=== PATIENT | female | born 1970 | race Caucasian/White ===

== ENCOUNTER → 2019-08-17 15:46 | Outpatient (CLI) | payer OTHER, SELFPAY | PROVIDERS: PCP Naturopath; Visit Provider Internal Medicine | DX: S81.002D Unspecified open wound, left knee, subsequent encounter (principal) | CPT/HCPCS: 87070; 87075; 87077; 87186; 87205 ==

== ENCOUNTER 2019-10-15 05:06 | Emergency (ER) | payer OTHER, SELFPAY ==
[2019-10-15 05:16] VITALS: BP 124/59; PULSE 86; RESP 14; TEMP 37; O2SAT 100; BMI 22.4
--- NOTE | 2019-10-15 05:25 | ED.NEUROSD ---
HPI - Neuro Symptoms/Deficit General Chief Complaint: Neuro Symptoms/Deficit Stated Complaint: lft, lower part of face numb Time Seen by Provider: 10/15/19 05:07 Source: patient Mode of arrival: Family Vehicle Limitations: no limitations History of Present Illness HPI Narrative: 49-year-old female here for evaluation of approximately 30 minutes of ?tingling/numbness on her left jaw. She states that it started/she noticed it approximately 30 minutes ago. She was awake at the time. No trauma. No dental pain. No eye symptoms. No numbness or tingling in her upper lower extremities. No weakness in her upper lower extremities. No slurring of words. No rashes. No ear pain. No dental pain. She states that her left side of her jaw feels like ?it is coming out of anesthesia. On Anticoagulants: No Related Data Home Medications Medication Instructions Recorded Confirmed QUETIAPINE FUMARATE (Seroquel) 25 mg PO HS #0 08/04/08 [LITHIUM ORATATE] #0 08/04/08 [LTRYPTIPHAN] #0 08/04/08 Previous Rx's Medication Instructions Recorded mupirocin 2 % topical ointment 1 applic TOP TID #30 gram 07/27/19 Allergies Allergy/AdvReac Type Severity Reaction Status Date / Time Penicillins Allergy Unknown Verified 07/27/19 12:38 Review of Systems Constitutional Constitutional: Denies chills, Denies fatigue, Denies fever(s) and Denies headache(s) Eyes Eyes: Denies blurry vision, Denies change in vision, Denies diplopia, Denies irritation, Denies itchy eyes, Denies loss of vision and Denies eye pain ENT Ears, Nose, Mouth, and Throat: Denies change in voice, Denies dental pain, Denies dysphagia, Denies vertigo, Denies dizziness, Denies facial pain, Denies headache(s), Denies lip swelling, Denies neck pain and Denies disequilibrium Comments: Tingling left-sided general Cardiovascular Cardiovascular: Denies chest pain and Denies dyspnea Respiratory Respiratory: Denies cough and Denies dyspnea Gastrointestinal Gastrointestinal: Denies dysphagia, Denies nausea and Denies vomiting Musculoskeletal Musculoskeletal: Denies neck pain and Reports tingling Integumentary/Breasts Skin/Breast: Denies lesions and Denies rash Neurologic Neurologic: Denies abnormal movements, Denies abnormal speech, Denies behavioral changes, Denies burning sensations, Denies confusion, Denies vertigo, Denies dizziness, Denies headache(s), Denies loss of vision, Reports tingling and Denies disequilibrium Psychiatric Psychiatric: Denies behavioral changes and Denies confusion Endocrine Endocrine: Denies fatigue Hematologic/Lymphatic Hematologic/Lymphatic: Denies easy bleeding and Denies easy bruising Allergic/Immunologic Allergic/Immunologic: Denies urticaria, Denies itchy eyes and Denies lip swelling Patient History Medical History Encounter for removal of sutures (Acute) Social History Smoking Status: Never smoker Smoking Status: Never smoker Substance Use Type: does not use Exam Initial Vital Signs Initial Vital Signs: Vital Signs Temperature 98.6 F 10/15/19 05:16 Pulse Rate 104 H 10/15/19 05:16 Respiratory Rate 14 10/15/19 05:16 Blood Pressure 124/59 L 10/15/19 05:16 Pulse Oximetry 100 10/15/19 05:16 Const General: cooperative, comfortable, well developed, well groomed and No acute distress Limitations: mental status not altered HENMT Head: normal to inspection and normocephalic Ears: TM's normal bilaterally Nose: external nose normal Face and sinus: normal facial exam Mouth: oral mucosae normal Teeth and gingiva: dentition normal Throat: posterior oropharynx normal Eyes General: appearance normal, both eyes and all related structures Conjunctivae: conjunctivae normal Pupils: PERRL EOM: EOM intact bilaterally Resp Effort & Inspection: normal respiratory effort Auscultation: clear to auscultation bilaterally Cardio Rate: regular rate Rhythm: regular rhythm Skin Lesions: no lesions Rashes: no rashes Neuro General: alert, awake and oriented x3 Cranial Nerves: PERRL and facial strength normal Cognition: normal cognition Speech: speech normal Gait: normal gait Motor: muscle tone normal throughout Sensory Exam: no sensory deficits noted Other: Cranial nerves intact except for the subjective decrease in sensation along the mandibular branch of the left-sided trigeminal nerve. She has no tenderness to palpation over this area. She can feel in this area she just states that is decreased sensation compared to the right side. Extrem General: normal to inspection and capillary refill normal Psych Appearance: grossly normal and well kempt Scores GCS [place] coma scale eye opening: Spontaneous [place] coma scale verbal response: Orientated Jan[place] coma scale motor response: Obey commands Janeth coma scale total score: 15 NIH Stroke Scale Level of Conciousness: Alert, keenly responsive Ask month/age: Answers both questions correctly. Open/close eyes, close hand: Performs both tasks correctly Best gaze horizontal: Normal Visual [place]: No visual loss Facial palsy: Normal symetrical movement Left arm drift: No drift for full 10 sec Right arm drift: No drift for full 10 sec Left leg drift: No drift for full 10 sec Right leg drift: No drift for full 10 sec Limb ataxia: Absent Sensory on face/arms/legs: Mild to moderate sensory loss, can tell touch Best language: No aphasia, normal Dysarthria: Normal Extinction or inattention: No abnormality Total NIH Stroke scale score: 1 Course Vital Signs Vital signs: Vital Signs - 8 hr 10/15/19 05:16 Temperature 98.6 F Pulse Rate 104 H Respiratory Rate 14 Blood Pressure 124/59 L Pulse Oximetry 100 MDM - Neuro Symptoms/Deficit MDM Narrative Medical decision making narrative: Patient with no objective findings on her neurologic exam. NIH score of 1 secondary to the decreased sensation to light touch along 1 branch of the left-sided trigeminal nerve compared to the right. Motor the facial nerves unremarkable. There is no rash consistent with zoster. Her exam is not consistent with Ji's palsy. Low suspicion for TIA. Low suspicion for CVA. Feel we could hold on antibiotics or steroids for now. Informed the patient of strict return precautions with regard to zoster/Ji's palsy in the importance of starting medications early if her symptoms worsen. She is given with return precautions and follow-up instructions. She expressed understanding and agreement with plan. Discharge Plan Departure Patient Disposition: Home Clinical Impression: Facial paresthesia Instructions: DI for Numbness/tingling Activity Restrictions/Additional Instructions: Recommend that you contact your primary provider for follow-up. If you start to develop a rash on left side her face or the tingling/numbness worsens or he develops any other new symptoms please return to the emergency department for further evaluation Prescriptions: No Action mupirocin 2 % ointment 1 applic TOP TID Qty: 30 RF: 0 QUETIAPINE FUMARATE (Seroquel) 25 mg PO HS Qty: 0 RF: 0 [LTRYPTIPHAN] Qty: 0 RF: 0 [LITHIUM ORATATE] Qty: 0 RF: 0 Referrals: Mary Rodriguez ND [Primary Care Provider] -
[2019-10-15 05:30] VITALS: BP 108/51; PULSE 86; RESP 14; O2SAT 100
== END 2019-10-15 05:33 | disposition home or self-care (01) ==
PROVIDERS: Emergency Provider Emergency Medicine; PCP Naturopath
DX: R20.2 Paresthesia of skin (principal)
CPT/HCPCS: 99282

== ENCOUNTER 2019-12-13 17:32 | Observation (INO) | payer OTHER, SELFPAY ==
[2019-12-13] VITALS (11 sets, daily range): BP systolic 93–152; BP diastolic 50–73; PULSE 79–91; RESP 12–21; TEMP 36.6–36.8; O2SAT 97–100; BMI 22.0
--- NOTE | 2019-12-13 18:13 | ED.CHESTPAIN ---
HPI - Chest Pain General Chief Complaint: Chest Pain Stated Complaint: Left Arm Numbness and Tingling/Chest Pressure Time Seen by Provider: 12/13/19 17:58 Source: patient Mode of arrival: Ambulatory Limitations: no limitations History of Present Illness HPI narrative: 49-year-old female nonsmoker with very strong family history of coronary artery disease presents with a chief complaint of episodes of anterior chest pressure with radiation to her left shoulder over the course of the week. She has had some nausea but denies any vomiting. She has had no significant shortness of breath but has been fatigued. She states that today she became very winded when walking upstairs, which is not normal for her. She does not think that be exertion worsens her chest pressure. She denies any recent long distance travel, history of clot or other. She states that she has been feeling generally unwell for quite a long time and was laid up at home with symptoms consistent with [place] id, however her tests were negative. Patient was having pressure 3/10 on arrival MD complaint: chest pain Onset (ago): hour(s) Duration: intermittent Onset: during rest Pain location: substernal and left chest Severity: moderate Quality: tightness and heaviness Pain radiation: LUE Relieving factors: nothing Exacerbating factors: nothing Associated symptoms: nausea Treatments prior to arrival chest pain: none Related Data On Oral Contraceptives: No Previous Rx's Medication Instructions Recorded mupirocin 2 % topical ointment 1 applic TOP TID #30 gram 07/27/19 Allergies Allergy/AdvReac Type Severity Reaction Status Date / Time Penicillins Allergy Unknown Verified 12/13/19 17:46 Review of Systems Constitutional Constitutional: Denies chills, Reports fatigue, Denies fever(s), Denies frequent falls, Reports lethargy and Denies weakness Eyes Eyes: Denies change in vision, Denies eye discharge, Denies irritation and Denies loss of vision ENT Ears, Nose, Mouth, and Throat: Denies change in voice, Denies dizziness, Denies neck pain, Denies sore throat and Denies throat swelling Cardiovascular Cardiovascular: Reports chest pain, Denies irregular heart rhythm, Denies lightheadedness, Denies palpitations, Reports dyspnea, Reports dyspnea on exertion and Denies orthopnea Respiratory Respiratory: Denies cough, Reports dyspnea, Reports dyspnea on exertion and Denies wheezing Gastrointestinal Gastrointestinal: Denies abdominal pain, Denies change in bowel habits, Denies diarrhea, Denies nausea and Denies vomiting Musculoskeletal Musculoskeletal: Denies neck pain and Denies numbness Integumentary/Breasts Skin/Breast: Denies pruritus, Denies erythema, Denies rash and Denies wounds Neurologic Neurologic: Denies behavioral changes, Denies confusion, Denies dizziness, Denies frequent falls, Denies loss of vision, Denies numbness and Denies weakness Psychiatric Psychiatric: Denies anxiety, Denies behavioral changes, Denies confusion, Denies depression, Denies homicidal ideation and Denies suicidal ideation Endocrine Endocrine: Reports fatigue, Denies flushing and Denies palpitations Hematologic/Lymphatic Hematologic/Lymphatic: Denies easy bruising Allergic/Immunologic Allergic/Immunologic: Denies urticaria, Denies throat swelling and Denies wheezing Patient History Medical History Encounter for removal of sutures (Acute) Social History household members: spouse Smoking Status: Never smoker Smoking Status: Never smoker Substance Use Type: does not use Exam Narrative Exam Narrative: GENERAL: [49] year old patient appears stated age. Well-nourished, well-developed patient, in mild distress. HEAD: Atraumatic. Normocephalic. EYES: Pupils equal round and reactive. Extraocular motions intact. No scleral icterus. No injection or drainage. ENT: Nose without bleeding, purulent drainage. Throat without erythema, tonsillar hypertrophy or exudate. Airway patent. NECK: Trachea midline. Non tender CARDIOVASCULAR: Regular rate and rhythm without murmurs, gallops, or rubs. RESPIRATORY: Clear to auscultation. Breath sounds equal bilaterally. No wheezes, rales, or rhonchi. GASTROINTESTINAL: Abdomen soft, non-tender, nondistended. EXTREMITIES: No edema or joint tenderness. BACK: Nontender without deformity or crepitance. No flank tenderness. NEURO: AOx3. SKIN: No rash or erythema of visible areas Initial Vital Signs Initial Vital Signs: Vital Signs Pulse Rate 91 H 12/13/19 17:43 Respiratory Rate 12 12/13/19 17:43 Blood Pressure 118/57 L 12/13/19 17:43 Pulse Oximetry 100 12/13/19 17:43 Course Course Course Narrative: Patient had a near complete resolution symptoms after 1 nitro. Orders Ordered: ED Orders 12/13/19 20:00 Troponin I Stat 12/13/19 21:14 Consult to Discharge Planning Routine 12/14/19 05:00 Basic Metabolic Panel Routine Complete Blood Count AUTO DIFF Routine Lipid Panel Routine Magnesium Routine Acetaminophen (Tylenol) 650 mg PO Q6HR PRN PRN Reason: Fever/Mild Pain (1-3) Aspirin (Aspirin Chew) 81 mg PO DAILY YASMINE Bisacodyl (Dulcolax) 10 mg PO DAILY PRN PRN Reason: Constipation Enoxaparin Sodium (Lovenox) 40 mg SUBCUT DAILY YASMINE Sodium Chloride (Normal Saline 0.9%) 1,000 mls @ 150 mls/hr IV CONT YASMINE Last Infusion: 12/13/19 21:03 Dose: 0 mls/hr Documented by: Admin: 12/13/19 18:43 Dose: 150 mls/hr Documented by: KAREN Sodium Chloride (Normal Saline 0.9%) 1,000 mls @ 100 mls/hr IV CONT [facility] Last Admin: 12/13/19 23:57 Dose: 100 mls/hr Documented by: CINTHIA Morphine Sulfate (Morphine) 2 mg IV Q5MIN PRN PRN Reason: Chest Pain Naloxone HCl (Narcan) 0.2 mg IV Q2MIN PRN PRN Reason: Opiate Reversal Nitroglycerin (Nitrostat) 0.4 mg SL [id number] PRN PRN Reason: Chest Pain Ondansetron HCl (Zofran) 4 mg IV Q8HR PRN PRN Reason: Nausea And Vomiting Discontinued Medications Aspirin (Aspirin Chew) 324 mg PO NOW ONE Stop: 12/13/19 18:15 Last Admin: 12/13/19 18:46 Dose: 324 mg Documented by: KAREN Nitroglycerin (Nitrostat) 0.4 mg SL NOW ONE Stop: 12/13/19 18:46 Last Admin: 12/13/19 18:47 Dose: 0.4 mg Documented by: KAREN Vital Signs Vital signs: Vital Signs - 8 hr 12/13/19 17:43 12/13/19 17:47 12/13/19 18:47 Temperature 97.8 F Pulse Rate 91 H 81 Respiratory Rate 12 Blood Pressure 118/57 L 152/67 H Blood Pressure [Left Arm] Pulse Oximetry 100 06/08/20 19:04 12/13/19 19:30 12/13/19 20:00 Temperature Pulse Rate 91 H 88 82 Respiratory Rate 16 21 20 Blood Pressure Blood Pressure [Left Arm] 116/63 99/53 L 93/50 L Pulse Oximetry 99 98 98 12/13/19 20:15 Temperature Pulse Rate 82 Respiratory Rate 16 Blood Pressure Blood Pressure [Left Arm] 105/60 Pulse Oximetry 97 MDM - Chest Pain Lab Data Result diagrams: 12/13/19 18:00 12/13/19 18:00 Labs: Lab Results 12/13/19 12/13/19 12/13/19 Range/Units 18:00 18:00 18:00 WBC 6.4 (4.5-11.0) X10^3/uL RBC 4.03 (4.0-5.2) X10^6/uL Hgb 12.6 (12.0-16.0) g/dL Hct 36.8 (36-46) % MCV 91.4 (80-100) fL MCH 31.3 (26-34) PG MCHC 34.2 (30-36) % RDW 12.8 (11.6-14.8) % Plt Count 233 (150-400) X10^3/uL Neut % (Auto) 48.6 L (50-75) % Lymph % (Auto) 40.4 H (25-40) % [place] % (Auto) 7.4 (3-14) % Eos % (Auto) 3.1 (2-4) % Baso % (Auto) 0.5 (0-2) % Neut # (Auto) 3100 (0192-4542) /uL Lymph # (Auto) 2600 (9104-3073) /uL [place] # (Auto) 500 (0-900) /uL Eos # (Auto) 200 (0-450) /uL Baso # (Auto) 0 (0-100) /uL PT 10.6 (10.1-12.7) SECONDS INR 0.9 (0.9-1.3) D-Dimer < 200 (<230) ng/mL Sodium 135 L (137-145) mmol/L Potassium 4.0 (3.4-5.1) mmol/L Chloride 103 (98-107) mmol/L Carbon Dioxide 27 (22-32) mmol/L BUN 18 H (7-17) mg/dL Creatinine 0.49 L (0.52-1.04) mg/dL Estimated GFR > 60.0 (>60) mL/min BUN/Creatinine Ratio 36.7 H (6-22) Glucose 96 (70-100) mg/dL Calcium 9.6 (8.4-10.2) mg/dL Magnesium (1.6-2.3) mg/dL Ferritin (6-137) ng/mL Total Bilirubin 0.5 (0.2-1.3) mg/dL AST 53 H (14-36) IU/L ALT 40 H (<35) IU/L Alkaline Phosphatase 67 (38-126) U/L Lactate Dehydrogenase (313-618) U/L Total Creatine Kinase 42 (30-135) U/L CK-MB (CK-2) TNP CK-MB (CK-2) Rel Index TNP Troponin I < 0.012 (0.01-0.034) ng/mL C-Reactive Protein (<1.0) mg/dL NT-Pro-B Natriuret Pep 25 (<125) pg/mL Total Protein 7.5 (6.3-8.2) g/dL Albumin 4.3 (3.5-5.0) g/dL Globulin 3.2 (1.7-4.1) g/dL Albumin/Globulin Ratio 1.3 (1.0-2.8) Lipase 112 (23-300) U/L COVID-19 PCR (Negative) 12/13/19 12/13/19 12/13/19 Range/Units 18:00 18:00 20:00 WBC (4.5-11.0) X10^3/uL RBC (4.0-5.2) X10^6/uL Hgb (12.0-16.0) g/dL Hct (36-46) % MCV (80-100) fL MCH (26-34) PG MCHC (30-36) % RDW (11.6-14.8) % Plt Count (150-400) X10^3/uL Neut % (Auto) (50-75) % Lymph % (Auto) (25-40) % [place] % (Auto) (3-14) % Eos % (Auto) (2-4) % Baso % (Auto) (0-2) % Neut # (Auto) (1959-3011) /uL Lymph # (Auto) (1180-5983) /uL [place] # (Auto) (0-900) /uL Eos # (Auto) (0-450) /uL Baso # (Auto) (0-100) /uL PT (10.1-12.7) SECONDS INR (0.9-1.3) D-Dimer (<230) ng/mL Sodium (137-145) mmol/L Potassium (3.4-5.1) mmol/L Chloride (98-107) mmol/L Carbon Dioxide (22-32) mmol/L BUN (7-17) mg/dL Creatinine (0.52-1.04) mg/dL Estimated GFR (>60) mL/min BUN/Creatinine Ratio (6-22) Glucose (70-100) mg/dL Calcium (8.4-10.2) mg/dL Magnesium 2.2 (1.6-2.3) mg/dL Ferritin 13 (6-137) ng/mL Total Bilirubin (0.2-1.3) mg/dL AST (14-36) IU/L ALT (<35) IU/L Alkaline Phosphatase (38-126) U/L Lactate Dehydrogenase 480 (313-618) U/L Total Creatine Kinase (30-135) U/L CK-MB (CK-2) CK-MB (CK-2) Rel Index Troponin I < 0.012 (0.01-0.034) ng/mL C-Reactive Protein < 0.5 (<1.0) mg/dL NT-Pro-B Natriuret Pep (<125) pg/mL Total Protein (6.3-8.2) g/dL Albumin (3.5-5.0) g/dL Globulin (1.7-4.1) g/dL Albumin/Globulin Ratio (1.0-2.8) Lipase (23-300) U/L COVID-19 PCR (Negative) 12/13/19 Range/Units 20:57 WBC (4.5-11.0) X10^3/uL RBC (4.0-5.2) X10^6/uL Hgb (12.0-16.0) g/dL Hct (36-46) % MCV (80-100) fL MCH (26-34) PG MCHC (30-36) % RDW (11.6-14.8) % Plt Count (150-400) X10^3/uL Neut % (Auto) (50-75) % Lymph % (Auto) (25-40) % [place] % (Auto) (3-14) % Eos % (Auto) (2-4) % Baso % (Auto) (0-2) % Neut # (Auto) (9864-2609) /uL Lymph # (Auto) (5012-7732) /uL [place] # (Auto) (0-900) /uL Eos # (Auto) (0-450) /uL Baso # (Auto) (0-100) /uL PT (10.1-12.7) SECONDS INR (0.9-1.3) D-Dimer (<230) ng/mL Sodium (137-145) mmol/L Potassium (3.4-5.1) mmol/L Chloride (98-107) mmol/L Carbon Dioxide (22-32) mmol/L BUN (7-17) mg/dL Creatinine (0.52-1.04) mg/dL Estimated GFR (>60) mL/min BUN/Creatinine Ratio (6-22) Glucose (70-100) mg/dL Calcium (8.4-10.2) mg/dL Magnesium (1.6-2.3) mg/dL Ferritin (6-137) ng/mL Total Bilirubin (0.2-1.3) mg/dL AST (14-36) IU/L ALT (<35) IU/L Alkaline Phosphatase (38-126) U/L Lactate Dehydrogenase (313-618) U/L Total Creatine Kinase (30-135) U/L CK-MB (CK-2) CK-MB (CK-2) Rel Index Troponin I (0.01-0.034) ng/mL C-Reactive Protein (<1.0) mg/dL NT-Pro-B Natriuret Pep (<125) pg/mL Total Protein (6.3-8.2) g/dL Albumin (3.5-5.0) g/dL Globulin (1.7-4.1) g/dL Albumin/Globulin Ratio (1.0-2.8) Lipase (23-300) U/L COVID-19 PCR Negative (Negative) Imaging Data Chest x-ray: Radiologist's Impression: Chart Viewer Diagnostics DATE TYPE STATUS REF RANGE/AUTHOR Hx 12/13/19 18:14 Glenroy Lerma Miriam 49, F107/25/1969 REG ER, [facility] ED R05 152.4cm 51.256kg BMI: 22.1kg/m? Chest Pain Search Chart No Data to Display NF - Not included in interaction checking ONSET Today 20:15 Cary Copeland 49 F [address] [address] XRay Report Signed Patient: Aundrea CopelandmMR#: [id number] : 1970Acct:[id number] Age/Sex: 49 / FDate of Service: 12/13/19 Loc: ED Accession Number: [id number] Procedure: XR chest 1V Ordering Provider: Nico Hood D.O. PROCEDURE: XR CHEST 1V INDICATIONS: CP, SOB, fatigue TECHNIQUE: One view of the chest was acquired. COMPARISON: [facility], , CHEST 2 VIEW, 08/04/2008, 8:17. FINDINGS: Surgical changes and devices: None. Lungs and pleura: Lungs are clear. No pleural effusions or pneumothorax. Mediastinum: Mediastinal contours appear normal. Heart size is normal. Bones and chest wall: No suspicious bony lesions. Overlying soft tissues appear unremarkable. IMPRESSION: No acute disease Dictated by: Glenroy Lerma M.D. on 12/13/2019 at 18:43 Approved by: Glenroy Lerma M.D. on 12/13/2019 at 18:43 Discharge Plan Departure Patient Disposition: Admitted As Inpatient Clinical Impression: Chest pain Qualifiers: Chest pain type: unspecified Qualified Code(s): R07.9 - Chest pain, unspecified Discharge Date/Time: 12/13/19 21:05 Admit Date/Time: 12/13/19 21:14 Admit Provider: Gigi Vargas
[2019-12-13 18:27] LABS: Add Manual Diff / Slide Review NO; Basophils Absolute Auto 0 /uL (0-100); Basophils Percent Auto 0.5 % (0-2); Eosinophils Absolute Auto 200 /uL (0-450); Eosinophils Percent Auto 3.1 % (2-4); Hematocrit 36.8 % (36-46); Hemoglobin 12.6 g/dL (12.0-16.0); Lymphocytes Absolute Auto 2600 /uL (1100-4500); Lymphocytes Percent Auto 40.4 % (25-40); Mean Corpuscular HGB Conc 34.2 % (30-36); Mean Corpuscular Hemoglobin 31.3 PG (26-34); Mean Corpuscular Volume 91.4 fL (80-100); Monocytes Absolute Auto 500 /uL (0-900); Monocytes Percent Auto 7.4 % (3-14); Neutrophils Absolute Auto 3100 /uL (1500-7000); Neutrophils Percent Auto 48.6 % (50-75); Platelet Count 233 X10^3/uL (150-400); Red Blood Cell Count 4.03 X10^6/uL (4.0-5.2); Red Cell Distribution Width 12.8 % (11.6-14.8); White Blood Cell Count 6.4 X10^3/uL (4.5-11.0)
[2019-12-13 18:32] LABS: INR 0.9 (0.9-1.3); Prothrombin Time 10.6 SECONDS (10.1-12.7)
[2019-12-13 18:33] LABS: Alanine Aminotransferase 40 IU/L (<35); Albumin 4.3 g/dL (3.5-5.0); Albumin Globulin Ratio 1.3 (1.0-2.8); Alkaline Phosphatase 67 U/L (38-126); Aspartate Aminotransferase 53 IU/L (14-36); BUN Creatinine Ratio 36.7 (6-22); Bilirubin Total 0.5 mg/dL (0.2-1.3); Blood Urea Nitrogen 18 mg/dL (7-17); Calcium 9.6 mg/dL (8.4-10.2); Carbon Dioxide 27 mmol/L (22-32); Chloride 103 mmol/L (98-107); Creatine Kinase 42 U/L (30-135); Estimated Glomerular Filt Rate > 60.0 mL/min (>60); Globulin 3.2 g/dL (1.7-4.1); Glucose 96 mg/dL (70-100); HEMOLYSIS 41 (0-50); Lipase 112 U/L (23-300); Sodium 135 mmol/L (137-145); Total Protein 7.5 g/dL (6.3-8.2)
[2019-12-13 18:36] LABS: D Dimer < 200 ng/mL (<230)
[2019-12-13] MEDS: SODIUM CHLORIDE 0.9% 1,000 ML 150 ML IV (18:43)
[2019-12-13 18:45] LABS: NT-proBNP (BNP-Adult 18+) 25 pg/mL (<125); Troponin I < 0.012 ng/mL (0.01-0.034)
[2019-12-13] MEDS: ASPIRIN 81 MG CHEW TAB 324 MG PO (18:46)
[2019-12-13] MEDS: NITROGLYCERIN 0.4 MG SL TAB SL (18:47)
[2019-12-13 19:04] LABS: Lactate Dehydrogenase 480 U/L (313-618)
--- NOTE | 2019-12-13 19:05 | PC.NURSE ---
After nitro patient reports pressure in chest decreased from a 5 to a 2/10. States she feels so much better.
[2019-12-13 19:13] LABS: C-Reactive Protein Quant < 0.5 mg/dL (<1.0)
[2019-12-13 19:37] LABS: Ferritin 13 ng/mL (6-137)
[2019-12-13 20:36] LABS: Troponin I < 0.012 ng/mL (0.01-0.034)
[2019-12-13 21:33] LABS: Magnesium 2.2 mg/dL (1.6-2.3)
[2019-12-13 22:01] LABS: COVID19 -Nasal RAPID Negative (Negative)
--- NOTE | 2019-12-13 22:36 | PC.NURSE ---
Pt arrived from ER @ 2210. Alert/oriented. States she has had chest pressure for 2 days. Declines discomfort at this time . IVF infusing as per orders into the LAC w/o incidence. Pt oriented to room & all system. WIll have stress test tpmorrow, NPO @ [place] Call light w/in reach, pt calls appropriately for needs. Continue w/plan of care.
[2019-12-13] MEDS: SODIUM CHLORIDE 0.9% 1,000 ML 100 ML IV (23:57)
[2019-12-14 04:56] VITALS: BP 100/63; PULSE 64; RESP 18; TEMP 36.4; O2SAT 100
--- NOTE | 2019-12-14 05:50 | PC.NURSE ---
Pt denied chest/arm pain/pressure overnight. She did however report her right arm and left leg becoming numb at one point overnight and stated it happened the other day at home as well. Pulses present and no pain there. She said it didn't last long but she woke up to it. Kept NPO for stress test Tele: NSR NS@100mL/hr
--- NOTE | 2019-12-14 06:07 | P.HP_ITS ---
History of Present Illness History of Present Illness Date Patient Seen: 12/13/19 Time Patient Seen: 21:30 Chief complaint: Left Arm Numbness and Tingling/Chest Pressure Narrative: Ms. Cary Copeland is a 49-year-old female patient with no significant medical history who presents to the ER with chest and arm pain. The patient reports having intermittent chest pressure off and on for 1 week. She presents to the ER today related to increasing chest pressure described as retrosternal with associated shortness of breath when ascending stairs and developing radiation to the left she describes as a dull ache from her shoulder distal. She reports no nausea vomiting and has had no diaphoresis. The patient describes some difficulty swallowing and sleeping sitting up in a recliner. The patient has not had any previous similar episodes and takes only vitamins and herbal supplements following a naturopathic process. She does has a family history that is significant for cardiovascular disease and hypertension. The patient reports having no fevers or chills and denies any known COVID-19 exposure. She denies headaches or dizziness and has no visual changes. She does have a persistent numb spot on the left side of her chin which is been persistent for many weeks. She also describes having an illness that lasted 10 weeks beginning back in August with headaches dizziness or runny nose and vertigo. She has chest pain as above but denies palpitations. She typically has no shortness of breath or exertional dyspnea and has had no cough or wheezing. She denies abdominal pain or heartburn and has had no nausea vomiting, diarrhea or constipation. She describes no difficulty urinating. She states her last menstrual period was approximately 6 weeks ago and has been irregular. Upon arrival to the ER the patient has a temperature of 97.8?, heart rate of 81, blood pressure 152/67, respirations of 18 with an oxygen saturation 99% on room air. At the time of arrival the patient still was having chest pain rated at 3/10 received 1 sublingual nitro which alleviated all pain. On 12 lead EKG the patient is found to be in a normal sinus rhythm a ventricular rate of 94, no ectopy or block, normal axis, flat T-waves in V3 and V4, no other signs of ischemia or infarct. A chest x-ray obtained which finds no acute disease. On laboratory analysis the patient has white count of 6.4, hemoglobin of 12.6, hematocrit of 36.8, platelets of 230. She has a PT of 10.6 and an INR of 0.9. Her D-dimer is less than 200. Her electrolytes are all within normal limits and has a BUN of 18 and creatinine 0.48. Her nonfasting glucose is 96. On LFT she has a total bilirubin of 0.8 with the AST of 53, ALT of 40 and alkaline phosphatase of 67. She has a ferritin of 13, LDH of 480. Her total CK is 42 and her troponin is less than 0.012 x 2. COVID-19 Ng is completed and negative. The patient is admitted to the hospital for chest pain rule out ACS. Patient History Medical History (Updated 12/14/19 @ 06:22 by KADEN Aguilar) History of appendicitis (Acute) Surgical History (Updated 12/14/19 @ 06:22 by KADEN Aguilar) History of appendectomy (Acute) Family & Social History Family History (Updated 12/14/19 @ 06:23 by KADEN Aguilar) Father Hypertension Cardiovascular disease Peripheral vascular disease Mother Hypertension Cardiovascular disease Grandmother Heart attack Grandfather Stroke Social History: household members spouse Prior Living Arrangements House Safety & Behavioral: Feels Safe in Current Yes Environment Been Physically Hurt or No Threatened By a Person Suicidal Ideation Description None Suicide Plan Description No Plan Tobacco & Substance use: Smoking Status Never smoker alcohol intake frequency other Substance Use Type does not use Meds Home Medications and Allergies Home Medications Medication Instructions Recorded Confirmed Type mupirocin 2 % topical ointment 1 applic TOP TID #30 gram 07/27/19 12/14/19 Rx Allergies Allergy/AdvReac Type Severity Reaction Status Date / Time Penicillins Allergy Unknown Verified 12/13/19 17:46 Review of Systems Review of Systems ROS: Yes All systems reviewed with the patient and are negative except as otherwise documented Exam Vital Signs (past 8 hours): - 12/13/19 22:17 12/13/19 23:45 12/14/19 04:56 Temperature 98.2 F 97.6 F Pulse Rate 79 64 Respiratory Rate 18 18 Blood Pressure 107/51 L 100/63 Pulse Oximetry 99 99 100 Oxygen Delivery Method Room Air Oxygen Flow Rate 0 Narrative Exam Narrative: GENERAL APPEARANCE: well developed, well nourished, in no acute distress. HEENT: Normocephalic, PERRLA, conjunctiva clear, EOMs intact without nystagmus, no sinus tenderness to percussion, no rhinorrhea, mucous membranes are moist and pink without lesions or exudate. NECK/THYROID: neck supple, no JVD, no carotid bruit, no thyromegaly, trachea midline. LYMPH NODES: no cervical or supraclavicular lymphadenopathy. SKIN: [place], warm and dry, no visible lesions. HEART: regular rate and rhythm, S1-S2, no murmur, no rubs or gallops, brisk capillary refill, no edema LUNGS: clear to auscultation bilaterally, no coarseness crackles or wheezing, no cough present CHEST: Symmetrical movement, no accessory muscle use, good tidal volume. ABDOMEN: Soft, no distention, no abdominal tenderness, no organomegaly, no flank or suprapubic tenderness, active bowel tones. BACK: Normal curvature, nontender to palpation, no CVA tenderness on percussion EXTREMITIES: moves all extremities, strength is 5/5 and symmetrical, no deformities or joint effusions. NEUROLOGIC: AAO x4, no focal neurologic deficits, cranial nerves II-XII grossly intact, small numb spot left lateral chin, distal sensation intact to light touch, hearing grossly normal to speech. PSYCH: Good eye contact, linear thought process, cooperative, appropriate with stable behavior Objective Labs Result Diagrams: 12/13/19 18:00 12/13/19 18:00 Labs: Laboratory Results - last 24 hr 12/13/19 12/13/19 12/13/19 18:00 18:00 18:00 WBC 6.4 RBC 4.03 Hgb 12.6 Hct 36.8 MCV 91.4 MCH 31.3 MCHC 34.2 RDW 12.8 Plt Count 233 Neut % (Auto) 48.6 L Lymph % (Auto) 40.4 H [place] % (Auto) 7.4 Eos % (Auto) 3.1 Baso % (Auto) 0.5 Neut # (Auto) 3100 Lymph # (Auto) 2600 [place] # (Auto) 500 Eos # (Auto) 200 Baso # (Auto) 0 PT 10.6 INR 0.9 D-Dimer < 200 Sodium 135 L Potassium 4.0 Chloride 103 Carbon Dioxide 27 BUN 18 H Creatinine 0.49 L Estimated GFR > 60.0 BUN/Creatinine Ratio 36.7 H Glucose 96 Calcium 9.6 Magnesium Ferritin Total Bilirubin 0.5 AST 53 H ALT 40 H Alkaline Phosphatase 67 Lactate Dehydrogenase Total Creatine Kinase 42 CK-MB (CK-2) TNP CK-MB (CK-2) Rel Index TNP Troponin I < 0.012 C-Reactive Protein NT-Pro-B Natriuret Pep 25 Total Protein 7.5 Albumin 4.3 Globulin 3.2 Albumin/Globulin Ratio 1.3 Lipase 112 COVID-19 PCR 12/13/19 12/13/19 12/13/19 18:00 18:00 20:00 WBC RBC Hgb Hct MCV MCH MCHC RDW Plt Count Neut % (Auto) Lymph % (Auto) [place] % (Auto) Eos % (Auto) Baso % (Auto) Neut # (Auto) Lymph # (Auto) [place] # (Auto) Eos # (Auto) Baso # (Auto) PT INR D-Dimer Sodium Potassium Chloride Carbon Dioxide BUN Creatinine Estimated GFR BUN/Creatinine Ratio Glucose Calcium Magnesium 2.2 Ferritin 13 Total Bilirubin AST ALT Alkaline Phosphatase Lactate Dehydrogenase 480 Total Creatine Kinase CK-MB (CK-2) CK-MB (CK-2) Rel Index Troponin I < 0.012 C-Reactive Protein < 0.5 NT-Pro-B Natriuret Pep Total Protein Albumin Globulin Albumin/Globulin Ratio Lipase COVID-19 PCR 12/13/19 20:57 WBC RBC Hgb Hct MCV MCH MCHC RDW Plt Count Neut % (Auto) Lymph % (Auto) [place] % (Auto) Eos % (Auto) Baso % (Auto) Neut # (Auto) Lymph # (Auto) [place] # (Auto) Eos # (Auto) Baso # (Auto) PT INR D-Dimer Sodium Potassium Chloride Carbon Dioxide BUN Creatinine Estimated GFR BUN/Creatinine Ratio Glucose Calcium Magnesium Ferritin Total Bilirubin AST ALT Alkaline Phosphatase Lactate Dehydrogenase Total Creatine Kinase CK-MB (CK-2) CK-MB (CK-2) Rel Index Troponin I C-Reactive Protein NT-Pro-B Natriuret Pep Total Protein Albumin Globulin Albumin/Globulin Ratio Lipase COVID-19 PCR Negative Assessment & Plan Assessment & Plan narrative: This is a 49-year-old female patient who presents to the ER with 1 week of intermittent chest pressure. The patient was walking upstairs becoming dyspneic with worsening substernal chest pain radiating to the left arm. 1. Chest pain, possible acute coronary syndrome, present on admission, active. -patient with intermittent chest pain becoming worse and more constant today provoked with activity ascending stairs with radiation to the left arm without complaints of nausea or vomiting or diaphoresis. -no prior history, strong family history with mother and father both having hypertension cardiovascular disease -upon arrival to the ER patient had chest pain 3/10 relieved with nitroglycerin sublingual. -12 lead EKG finds normal sinus rhythm with a ventricular rate of 94 without ectopy or block, normal axis, flattened T-waves in V3 and 4. -labs are assessed finding total CK of 42 with troponin negative at less than 0.012 x 2. -ordered nitroglycerin 0.4 mg sublingual Q 5 minutes x3 as needed for chest pain, morphine sulfate 2 mg IV for chest pain unrelieved by nitro. -ordered echocardiogram -ordered stress test. -patient is NPO with normal saline at 100 cc/hour. Isolation: None COVID-19 status: NEGATIVE. VTE prophylaxis: Bilateral SCDs, enoxaparin IV fluid: Normal saline 100 cc/hour Diet: Heart healthy, NPO after midnight. Code status: FULL CODE, the patient designates her Davide Hunt to be her surrogate decision maker. The patient is admitted to the hospital due to the severity of her symptoms requiring further investigation of monitoring. The patient is admitted as ob servation status with expected length of stay to be less than 2 midnights. COVID-19 COVID-19 status: Negative Scores GCS Janeth coma scale eye opening: Spontaneous Janeth coma scale verbal response: Orientated Janeth coma scale motor response: Obey commands Janeth coma scale total score: 15 Quality VTE Deep Vein Thrombosis/Pulmonary Embolism Present on Admission: No
[2019-12-14 06:47] LABS: Add Manual Diff / Slide Review NO; Basophils Absolute Auto 0 /uL (0-100); Basophils Percent Auto 0.5 % (0-2); Eosinophils Absolute Auto 200 /uL (0-450); Eosinophils Percent Auto 3.1 % (2-4); Hematocrit 33.5 % (36-46); Hemoglobin 11.4 g/dL (12.0-16.0); Lymphocytes Absolute Auto 2200 /uL (1100-4500); Lymphocytes Percent Auto 44.9 % (25-40); Mean Corpuscular HGB Conc 34.1 % (30-36); Mean Corpuscular Hemoglobin 31.2 PG (26-34); Mean Corpuscular Volume 91.4 fL (80-100); Monocytes Absolute Auto 400 /uL (0-900); Monocytes Percent Auto 7.7 % (3-14); Neutrophils Absolute Auto 2200 /uL (1500-7000); Neutrophils Percent Auto 43.8 % (50-75); Platelet Count 204 X10^3/uL (150-400); Red Blood Cell Count 3.66 X10^6/uL (4.0-5.2); Red Cell Distribution Width 12.8 % (11.6-14.8); White Blood Cell Count 4.9 X10^3/uL (4.5-11.0)
[2019-12-14 06:59] LABS: BUN Creatinine Ratio 27.1 (6-22); Blood Urea Nitrogen 13 mg/dL (7-17); Calcium 8.5 mg/dL (8.4-10.2); Carbon Dioxide 26 mmol/L (22-32); Chloride 109 mmol/L (98-107); Estimated Glomerular Filt Rate > 60.0 mL/min (>60); Glucose 93 mg/dL (70-100); HEMOLYSIS < 15 (0-50); Potassium 3.8 mmol/L (3.4-5.1); Sodium 137 mmol/L (137-145)
[2019-12-14 07:09] LABS: Troponin I < 0.012 ng/mL (0.01-0.034)
[2019-12-14 07:17] LABS: Cholesterol 151 mg/dL (140-199); HDL Cholesterol 38 mg/dL (40-60); LDL Cholesterol Calculated 102 mg/dL (<100); Triglycerides 53 mg/dL (35-150)
[2019-12-14 07:30] VITALS: BP 104/43; PULSE 73; RESP 16; TEMP 36.7; O2SAT 100
--- NOTE | 2019-12-14 08:24 | DI.NM.S_ITS ---
PROCEDURE: NM PRATIBHA PERF SPECT REST & STR Rest and exercise myocardial perfusion SPECT with gated imaging and ejection fraction RADIOPHARMACEUTICAL: 12.0 mCi Tc-99m sestamibi IV at rest and 24.1 mCi Tc-99m sestamibi IV at peak exercise. A one day-protocol was performed. INDICATIONS: chest pain TECHNIQUE: Radiopharmaceutical was injected at peak stress test, and also at rest. SPECT images were obtained. SPECT myocardial perfusion images were displayed in short axis, horizontal long axis, and vertical long axis views. Gated images were reviewed using [email or web address] software. COMPARISON: None. CARDIAC STRESS: A standard Baljit treadmill exercise tolerance test was performed by the patient under the supervision of an attending staff. The patient exercised for 8 minutes and 11 seconds; functional aerobic impairment (PO) is 0%. Hemodynamic data: There is normal blood pressure and heart rate response to exercise stress. Patient achieved 91% of maximum predicted heart rate at peak exercise. Symptoms: Patient had chest pain during early exercise that resolved with continued exercise. EKG: Sinus rhythm with non-specific T wave changes at baseline. There were 1mm horizontal ST depressions with exercise that persisted into recovery. FINDINGS: Raw data: There is good myocardial labeling by radiotracer. No significant motion artifacts. Pwit-oy-sjexp ratio is 0.44 (normal is less than 0.38 for sestamibi tracer, and less than 0.50 for thallium tracer). Left ventricle function: Gated images demonstrate normal left ventricle wall thickening. No segmental wall motion abnormality. No transient ischemic dilation; TID is 0.72 (normal less than 1.3). The left ventricle resting end-diastolic volume is 59 mL. Left ventricle stress ejection fraction is 84%; normal values are above 45%. Myocardial perfusion: There is normal distribution of activity in the left and right ventricular myocardium. No fixed or reversible perfusion defects. IMPRESSION: Low risk, normal treadmill nuclear stress test. Consider Echo to rule out valvular heart disease given elevated lung-heart ratio. 1) No perfusion evidence of ischemia or infarction. 2) Normal left ventricular size, wall motion, and systolic function (EF post stress 84%). 3) Elevated lung-heart ratio of 0.44. Consider Echo to rule out valvular heart disease. 4) Non-diagnostic ECG changes with exercise. Sinus rhythm with non-specific T wave changes at baseline. There were 1mm horizontal ST depressions with exercise that persisted into recovery. 5) Non-cardiac chest pain. Patient had chest pain during early exercise that resolved with continued exercise. 6) Average exercise tolerance (10.1 METs, PO 0%). Target heart rate achieved. Appropriate BP response to exercise. 7) No prior nuclear stress test available for comparison. Dictated by: Eugene Ferrer MD on 12/14/2019 at 16:50 Approved by: Eugene Ferrer MD on 12/14/2019 at 16:56
[2019-12-14] MEDS: ASPIRIN 81 MG CHEW TAB PO (08:36)
[2019-12-14] MEDS: ENOXAPARIN 40 MG/0.4 ML SYRINGE SUBCUT (08:36)
[2019-12-14] MEDS: SODIUM CHLORIDE 0.9% 1,000 ML 50 ML IV (09:40)
--- NOTE | 2019-12-14 10:48 | PC.NURSE ---
Day shift: Pt off unit for stress test at this time 1048.
--- NOTE | 2019-12-14 11:23 | PC.NURSE ---
Day shift: Pt back on AC unit at approx 1120.
[2019-12-14 11:45] VITALS: BP 108/59; PULSE 71; RESP 16; TEMP 36.6; O2SAT 98
--- NOTE | 2019-12-14 13:10 | DI.ECHO.S_ITS ---
Echocardiogram Report + + :Name: ELLEN INIGUEZ Study Date: 12/14/2019 Height: 60 in : :[facility] Weight: 116 lb : : Gender: Female BSA: 1.5 m2 : :: 1970 Age: 49 yrs BP: 116/66 mmHg: :Reason For Study: CHEST PAIN : :Ordering Physician: [place] : :Hospitalist Performed By: Lorena Bryan : + + Interpretation Summary Left ventricular systolic function is normal with an estimated ejection fraction of 65 to 70% without any focal wall motion abnormality. Global longitudinal strain is likewise normal at -24%. Diastolic function is normal with normal filling pressures. The right ventricle is normal. Right ventricular systolic pressure is estimated at 30 mmHg with a CVP of around 3 mmHg. Both atria are normal in size. There is no significant valvular abnormality. Procedure: A two-dimensional transthoracic echocardiogram with color flow and Doppler was performed. The study quality was technically adequate. There is no prior echocardiogram noted for this patient. The patient was in normal sinus rhythm during the exam. The heart rate ranged between 75-85 bpm during the study. Left Ventricle: The left ventricle is normal in size and wall thickness. The left ventricle is normal in size, wall thickness, and systolic function without any focal wall motion abnormalities. Left ventricular systolic function is normal without focal wall motion abnormalities. The ejection fraction is estimated to be 65-70%. Left ventricular global longitudinal strain average is normal at -24% (normal is more negative than -20%). Diastolic parameters suggest probable normal left ventricular diastolic function and normal filling pressures. Right Ventricle: The right ventricle is normal in size and function. Atria: Both atria are normal in size. There is no Doppler evidence for an interatrial shunt. Mitral Valve: The mitral valve is normal in structure and function. There is trace mitral regurgitation. Aortic Valve: The aortic valve is trileaflet. The aortic valve opens well. There is no aortic valve stenosis. No aortic regurgitation is present. Tricuspid Valve: The tricuspid valve is normal in structure and function. There is trace tricuspid regurgitation. The right ventricular systolic pressure is estimated to be at least 30 mmHg based on an estimated right atrial pressure of 3 mm Hg. Pulmonic Valve: The pulmonic valve is not well seen, but is grossly normal. There is no pulmonic valvular regurgitation. There is no significant valvular heart disease. Great Vessels: The aortic root is normal size. The ascending aorta is normal in size. The IVC is of normal diameter and collapses greater than 50% with a sniff. This suggests a low right atrial pressure of 3 mm Hg. Pericardium/ Pleura There is no pericardial effusion. There is no pleural effusion. MMode/2D Measurements & Calculations LVIDd: 4.5 cm LVOT diam: 2.0 cm LVIDs: 3.2 cm Ao root diam: 2.6 cm FS: 29.2 % asc Aorta Diam: 2.4 cm EPSS: 0.61 cm Ao Arch Diam (Prox Trans): 2.3 cm IVSd: 0.53 cm LVPWd: 0.61 cm LV [place]. diameter/BSA (cm/m^2): 3.0 LV sys. diameter/BSA (cm/m^2): 2.1 LA A2 area: 10.2 cm2 RA long axis: 3.7 cm LA A4 area: 13.6 cm2 RA area: 9.9 cm2 LA length (vol): 4.9 cm RA vol: 22.8 ml LA vol: 23.9 ml RA : 15.4 ml/m2 LA vol index: 16.2 ml/m2 IVC diam: 1.0 cm RVD1 (basal): 2.6 cm TAPSE: 1.9 cm Doppler Measurements & Calculations Ao V2 max: 143.9 cm/sec LVOT Max Rob: 112.2 cm/sec Ao V2 mean: 97.9 cm/sec LV V1 max P.0 mmHg Ao max P.3 mmHg LV V1 VTI: 22.2 cm Ao mean P.3 mmHg NELSY(I,D): 2.5 cm2 Ao V2 VTI: 27.7 cm NELSY(V,D): 2.4 cm2 sev ratio: 0.80 NELSY indexed to BSA (cm^2/m^2): 1.7 MV E max rob: 92.9 cm/sec TR max rob: 228.4 cm/sec MV A max rob: 68.7 cm/sec TR max P.3 mmHg MV E/A: 1.4 PA V2 max: 76.2 cm/sec Med Peak E' Rob: 9.9 cm/sec PA V2 mean: 47.3 cm/sec E/E' med: 9.3 PA mean P.1 mmHg Lat Peak E' Rob: 12.6 cm/sec PA pr(Accel): 10.9 mmHg E/E' lat: 7.4 E/e' average: 8.4 MV dec time: 0.19 sec SV(LVOT): 68.6 ml _ Reading Physician:LAUREN
--- NOTE | 2019-12-14 15:58 | P.PCN_ITS ---
Cardiac Stress Test Report Referral & Results Date Patient Seen: 12/14/19 Time Patient Seen: 15:58 Requesting provider: Gigi Vargas Indication: chest pain Rest ECG: sinus rhythm Procedure Note: standard rainer protocol 8:11 min, 10.1 mets PO 0% Good exercise capacity. Chest pressure 2/10 at 1:49 exercise, resolved with continual exercise. not suggestive of ischemia. Normal hemodynamic response to exercise. resting ekg sinus rhythm, less than 2 mm depression in leads II, III, AVF, V4- 6. No arrythmias Impression: Equivocal stress test Please note: Actual ECG tracings can be found in the PACS system.
--- NOTE | 2019-12-14 16:05 | CM.DANOTE ---
DCP/Assessment: Reviewed chart. Patient is a 49yr old female admitted to [facility] with chest pain. PCP listed is Rebekah Puente. Primary payor is 1)victor m. Attempted to meet with patient to explain CM/SW role. Patient off floor at time of visit for stress test. Therapy evaluation completed and home recommended. Anticipate home if stress test negative. CM team will re-attempt visit tomorrow 6-10 if patient remains hospitalized. P: Anticipate home when stable. MIKEL Guerrero Discharge Planning/Care Management CM Discharge Assessment Start: 12/14/19 16:02 Freq: Status: Active Protocol: Document 12/14/19 16:02 KJS (Rec: 12/14/19 16:05 KJS [id number]) Discharge Planning Assessment Assigned [employer] MIKEL Guerrero Contact Information Davide Hunt (spouse) [phone] Advance Directives? No History Provided By Medical Record Prior Living Arrangements House Household Members spouse Independent with ADL's Yes Is patient alert and oriented? Yes Barriers to Discharge No Comment Pending stress test result. Discharge Plan Home Transportation Arrangement Family to provide transport at time of d/c. Review Status In Process Next Review Type Continued Stay Review
[2019-12-14 16:52] VITALS: BP 96/57; PULSE 79; RESP 18; TEMP 36.8; O2SAT 99
--- NOTE | 2019-12-14 17:07 | PC.NURSE ---
Addendum entered by Lilliana Arora R.N. 12/14/19 18:45: Discharge orders written. Tele dc'd, instructions given, IV dc'd. Original Note: SHIFT: Pt. off the floor approximately [id number] for stress test. A&Ox3, VSS, denies pain.
--- NOTE | 2019-12-14 17:14 | PM.DS.1 ---
History of Present Illness History of Present Illness Date Patient Seen: 12/14/19 Time Patient Seen: 17:14 Chief complaint: Left Arm Numbness and Tingling/Chest Pressure Narrative: As per KADEN Aguilar: Ms. Cary Copeland is a 49-year-old female patient with no significant medical history who presents to the ER with chest and arm pain. The patient reports having intermittent chest pressure off and on for 1 week. She presents to the ER today related to increasing chest pressure described as retrosternal with associated shortness of breath when ascending stairs and developing radiation to the left she describes as a dull ache from her shoulder distal. She reports no nausea vomiting and has had no diaphoresis. The patient describes some difficulty swallowing and sleeping sitting up in a recliner. The patient has not had any previous similar episodes and takes only vitamins and herbal supplements following a naturopathic process. She does has a family history that is significant for cardiovascular disease and hypertension. The patient reports having no fevers or chills and denies any known COVID-19 exposure. She denies headaches or dizziness and has no visual changes. She does have a persistent numb spot on the left side of her chin which is been persistent for many weeks. She also describes having an illness that lasted 10 weeks beginning back in August with headaches dizziness or runny nose and vertigo. She has chest pain as above but denies palpitations. She typically has no shortness of breath or exertional dyspnea and has had no cough or wheezing. She denies abdominal pain or heartburn and has had no nausea vomiting, diarrhea or constipation. She describes no difficulty urinating. She states her last menstrual period was approximately 6 weeks ago and has been irregular. Upon arrival to the ER the patient has a temperature of 97.8?, heart rate of 81, blood pressure 152/67, respirations of 18 with an oxygen saturation 99% on room air. At the time of arrival the patient still was having chest pain rated at 3/10 received 1 sublingual nitro which alleviated all pain. On 12 lead EKG the patient is found to be in a normal sinus rhythm a ventricular rate of 94, no ectopy or block, normal axis, flat T-waves in V3 and V4, no other signs of ischemia or infarct. A chest x-ray obtained which finds no acute disease. On laboratory analysis the patient has white count of 6.4, hemoglobin of 12.6, hematocrit of 36.8, platelets of 230. She has a PT of 10.6 and an INR of 0.9. Her D-dimer is less than 200. Her electrolytes are all within normal limits and has a BUN of 18 and creatinine 0.48. Her nonfasting glucose is 96. On LFT she has a total bilirubin of 0.8 with the AST of 53, ALT of 40 and alkaline phosphatase of 67. She has a ferritin of 13, LDH of 480. Her total CK is 42 and her troponin is less than 0.012 x 2. COVID-19 Ng is completed and negative. The patient is admitted to the hospital for chest pain rule out ACS. Discharge Providers Provider Date of admission: 12/13/19 21:14 Discharge Date: 12/14/19 Primary care physician: Rebekah Puente ND Consults: 12/13/19 21:14 Consult to Discharge Planning Routine Comment: Discharge provider: Gigi Poole DO Summary Hospital Course Discharge Diagnosis: 1. Chest pain, present on admission, resolved Hospital Course: Kyleigh Copeland is a 49 year old female with no significant past medical history who presented with recurrent chest pains that have been present over the past week. Signs were concerning for possible cardiac etiology. Patient's EKG did not show any evidence of ischemia, and no events were noted on telemetry. Troponins were negative. She underwent an echocardiogram which was unremarkable and did not show any wall motion abnormalities or valvular problems. She underwent a nuclear stress test which was deemed low likelihood for ischemia. Patient's chest pain had resolved and she was discharged home. Patient complained of prior fevers and chills a few months ago, and many months ago complained of a bite that she obtained in the [facility] on her left ankle. She noticed a rash which was erythematous but she does not recall if there is any central clearing. She is also reported transient facial numbness on the left-hand side. She had none of these symptoms on presentation, and again no fevers, chills, or rashes. Lyme serology was sent to see if if there may be an underlying chronic Lyme disease. She plans to follow-up with a primary care provider in the area. Her COVID-19 testing was negative. Exam Vital Signs (past 8 hours): - 12/14/19 11:45 12/14/19 16:52 Temperature 97.9 F 98.2 F Pulse Rate 71 79 Respiratory Rate 16 18 Blood Pressure 108/59 L 96/57 L Pulse Oximetry 98 99 Oxygen Delivery Method Room Air Oxygen Flow Rate 0 Narrative Exam Narrative: GENERAL APPEARANCE: Well developed, well nourished, in no acute distress. SKIN: Inspection of the skin reveals no rashes, ulcerations or petechiae. HEENT: Normocephalic atraumatic, extraocular muscles are intact, oropharynx is clear and mucous membranes are moist, neck is supple without adenopathy NECK: Supple and symmetric. There was no thyroid enlargement, and no tenderness, or masses were felt. CHEST: Normal AP diameter and normal contour without any kyphoscoliosis. LUNGS: Auscultation of the lungs revealed no wheezes, rhonchi, or rales. CARDIOVASCULAR: There was a regular rate and rhythm without any murmurs, gallops, rubs. Peripheral pulses were 2+ and symmetric. ABDOMEN: Soft and nontender with normal bowel sounds. No ascites was noted. MUSCULOSKELETAL: There was no tenderness or effusions noted. Muscle strength and tone were normal. EXTREMITIES: No cyanosis, clubbing or edema. NEUROLOGIC: Alert and oriented x 3. Normal affect. Gait was normal. Strength is +5/5 in the Upper Extremities and Lower Extremities Bilaterally. Sensation to touch was normal. Objective Labs Result Diagrams: 12/14/19 06:18 12/14/19 06:18 Labs: Laboratory Results - last 24 hr 12/13/19 12/13/19 12/13/19 18:00 18:00 18:00 WBC 6.4 RBC 4.03 Hgb 12.6 Hct 36.8 MCV 91.4 MCH 31.3 MCHC 34.2 RDW 12.8 Plt Count 233 Neut % (Auto) 48.6 L Lymph % (Auto) 40.4 H Monroe % (Auto) 7.4 Eos % (Auto) 3.1 Baso % (Auto) 0.5 Neut # (Auto) 3100 Lymph # (Auto) 2600 Monroe # (Auto) 500 Eos # (Auto) 200 Baso # (Auto) 0 PT 10.6 INR 0.9 D-Dimer < 200 Sodium 135 L Potassium 4.0 Chloride 103 Carbon Dioxide 27 BUN 18 H Creatinine 0.49 L Estimated GFR > 60.0 BUN/Creatinine Ratio 36.7 H Glucose 96 Calcium 9.6 Magnesium Ferritin Total Bilirubin 0.5 AST 53 H ALT 40 H Alkaline Phosphatase 67 Lactate Dehydrogenase Total Creatine Kinase 42 CK-MB (CK-2) TNP CK-MB (CK-2) Rel Index TNP Troponin I < 0.012 C-Reactive Protein NT-Pro-B Natriuret Pep 25 Total Protein 7.5 Albumin 4.3 Globulin 3.2 Albumin/Globulin Ratio 1.3 Triglycerides Cholesterol LDL Cholesterol, Calc HDL Cholesterol Lipase 112 COVID-19 PCR 12/13/19 12/13/19 12/13/19 18:00 18:00 20:00 WBC RBC Hgb Hct MCV MCH MCHC RDW Plt Count Neut % (Auto) Lymph % (Auto) Monroe % (Auto) Eos % (Auto) Baso % (Auto) Neut # (Auto) Lymph # (Auto) Monroe # (Auto) Eos # (Auto) Baso # (Auto) PT INR D-Dimer Sodium Potassium Chloride Carbon Dioxide BUN Creatinine Estimated GFR BUN/Creatinine Ratio Glucose Calcium Magnesium 2.2 Ferritin 13 Total Bilirubin AST ALT Alkaline Phosphatase Lactate Dehydrogenase 480 Total Creatine Kinase CK-MB (CK-2) CK-MB (CK-2) Rel Index Troponin I < 0.012 C-Reactive Protein < 0.5 NT-Pro-B Natriuret Pep Total Protein Albumin Globulin Albumin/Globulin Ratio Triglycerides Cholesterol LDL Cholesterol, Calc HDL Cholesterol Lipase COVID-19 PCR 12/13/19 12/14/19 12/14/19 20:57 06:18 06:18 WBC 4.9 RBC 3.66 L Hgb 11.4 L Hct 33.5 L MCV 91.4 MCH 31.2 MCHC 34.1 RDW 12.8 Plt Count 204 Neut % (Auto) 43.8 L Lymph % (Auto) 44.9 H Monroe % (Auto) 7.7 Eos % (Auto) 3.1 Baso % (Auto) 0.5 Neut # (Auto) 2200 Lymph # (Auto) 2200 Monroe # (Auto) 400 Eos # (Auto) 200 Baso # (Auto) 0 PT INR D-Dimer Sodium 137 Potassium 3.8 Chloride 109 H Carbon Dioxide 26 BUN 13 Creatinine 0.48 L Estimated GFR > 60.0 BUN/Creatinine Ratio 27.1 H Glucose 93 Calcium 8.5 Magnesium 2.0 Ferritin Total Bilirubin AST ALT Alkaline Phosphatase Lactate Dehydrogenase Total Creatine Kinase CK-MB (CK-2) CK-MB (CK-2) Rel Index Troponin I < 0.012 C-Reactive Protein NT-Pro-B Natriuret Pep Total Protein Albumin Globulin Albumin/Globulin Ratio Triglycerides 53 Cholesterol 151 LDL Cholesterol, Calc 102 H HDL Cholesterol 38 L Lipase COVID-19 PCR Negative Discharge Plan Discharge Plan Patient Disposition: Home Discharge comment: You were admitted to the hospital with chest pain. Your stress testing was negative. No medication changes are recommended at this time. Discharge orders & Medications Prescriptions: Continued mupirocin 2 % ointment 1 applic TOP TID Qty: 30 RF: 0 Follow up/Referrals: Rebekah Puente ND [Primary Care Provider] - Diet/Activity/Treatments Diet: Diet as Tolerated Activity: As tolerated. Visit Report/Discharge Packet Instructions: Cardiac Stress Test, DI for Cardiac Stress Test Visit Report Forms: Patient Portal/API, Stroke Signs & Symptoms Discharge Data Primary Care Provider: Rebekah Puente Attending Provider: Gigi Vargas Admit Date/Time: 12/13/19 21:14 Discharges patient from system. Discharge Date/Time: 12/14/19 18:50 Quality VTE Deep Vein Thrombosis/Pulmonary Embolism Present on Admission: No
== END 2019-12-14 18:50 | disposition home or self-care (01) ==
LOC: ED 19:28 → AC 12-14 10:38
PROVIDERS: Internal Medicine; Admitting Provider Nurse Practitioner Adult Health; Emergency Provider Emergency Medicine; PCP Naturopath; Referring Provider Emergency Medicine; Visit Provider Nurse Practitioner Adult Health
DX: R07.9 Chest pain, unspecified (principal); R20.0 Anesthesia of skin; Z11.59 Encounter for screening for other viral diseases
CPT/HCPCS: 36415; 71045; 78452; 80048; 80053; 80061; 82550; 82728; 83615; 83690; 83735; 83880; 84484; 85025; 85379; 85610; 86140; 86617; 87635; 93005; 93017; 93306; 94762; 96360; 96361; 96372; 99285; G0378; A9502; J1650

== ENCOUNTER → 2020-08-07 11:44 | Outpatient (CLI) | payer OTHER, SELFPAY ==
[2019-12-13 21:57] VITALS: BMI 22.0
[2020-08-07 12:46] LABS: Add Manual Diff / Slide Review NO; Basophils Absolute Auto 0 /uL (0-100); Basophils Percent Auto 0.5 % (0-2); Eosinophils Absolute Auto 0 /uL (0-450); Hematocrit 37.7 % (36-46); Hemoglobin 12.9 g/dL (12.0-16.0); Lymphocytes Absolute Auto 1900 /uL (1100-4500); Lymphocytes Percent Auto 40.2 % (25-40); Mean Corpuscular HGB Conc 34.2 % (30-36); Mean Corpuscular Hemoglobin 30.7 PG (26-34); Mean Corpuscular Volume 89.8 fL (80-100); Monocytes Absolute Auto 400 /uL (0-900); Monocytes Percent Auto 7.8 % (3-14); Neutrophils Absolute Auto 2400 /uL (1500-7000); Neutrophils Percent Auto 50.5 % (50-75); Platelet Count 252 X10^3/uL (150-400); Red Cell Distribution Width 12.8 % (11.6-14.8); White Blood Cell Count 4.7 X10^3/uL (4.5-11.0)
[2020-08-07 13:15] LABS: Erythrocyte Sedimentation Rate 16 MM/HR (0-20)
[2020-08-07 13:19] LABS: Alanine Aminotransferase 25 IU/L (<35); Albumin 4.4 g/dL (3.5-5.0); Albumin Globulin Ratio 1.4 (1.0-2.8); Alkaline Phosphatase 51 U/L (38-126); Aspartate Aminotransferase 35 IU/L (14-36); BUN Creatinine Ratio 19.6 (6-22); Bilirubin Total 0.5 mg/dL (0.2-1.3); Blood Urea Nitrogen 10 mg/dL (7-17); Calcium 9.6 mg/dL (8.4-10.2); Carbon Dioxide 29 mmol/L (22-32); Chloride 103 mmol/L (98-107); Cholesterol 220 mg/dL (140-199); Estimated Glomerular Filt Rate > 60.0 mL/min (>60); Globulin 3.1 g/dL (1.7-4.1); Glucose 91 mg/dL (70-100); HDL Cholesterol 55 mg/dL (40-60); HEMOLYSIS < 15 (0-50); LDL Cholesterol Calculated 142 mg/dL (<100); Potassium 3.7 mmol/L (3.4-5.1); Sodium 138 mmol/L (137-145); Total Protein 7.5 g/dL (6.3-8.2); Triglycerides 115 mg/dL (35-150)
[2020-08-07 13:39] LABS: Iron 99 ug/dL (37-170)
[2020-08-07 13:40] LABS: C-Reactive Protein Quant < 0.5 mg/dL (<1.0)
[2020-08-07 13:56] LABS: Free T4, Direct Thyroxine 0.98 ng/dL (0.78-2.19)
[2020-08-07 14:04] LABS: Ferritin 10 ng/mL (11-264)
[2020-08-07 14:10] LABS: Thyroid Stimulating Hormone 0.946 uIU/mL (0.47-4.68)
[2020-08-07 14:18] LABS: Vitamin B12 895 pg/mL (239-931)
[2020-08-07 17:31] LABS: Folate > 20.0 ng/mL (2.76-20.0)
[2020-08-08 07:25] LABS: Percent Iron Saturation 24 % (15-50); Total Iron Binding Capacity 419 ug/dL (265-497)
[2020-08-08 14:47] LABS: Vitamin D 25 Hydroxy (D3) 65.9 ng/mL (30.0-100.0)
[2020-08-09 14:17] LABS: Free T3, Triiodothyronine Free 3.72 pg/mL (2.77-5.27)
== END ==
PROVIDERS: PCP Registered Nurse Diabetes Educator; Referring Provider Naturopath; Visit Provider Naturopath
DX: Z00.00 Encounter for general adult medical examination without abnormal findings (principal); G93.3 Postviral and related fatigue syndromes; D50.9 Iron deficiency anemia, unspecified; R74.01 Elevation of levels of liver transaminase levels; N92.6 Irregular menstruation, unspecified; Z13.21 Encounter for screening for nutritional disorder
CPT/HCPCS: 36415; 80053; 80061; 82306; 82607; 82627; 82728; 82746; 83540; 83550; 84439; 84443; 84481; 85025; 85651; 86140

== ENCOUNTER 2020-08-14 05:02 | Emergency (ER) | payer OTHER, SELFPAY ==
[2019-12-13 21:57] VITALS: BMI 22.0
[2020-08-14 05:21] VITALS: BP 140/71; PULSE 115; RESP 20; TEMP 36.8; O2SAT 98; BMI 23.4
[2020-08-14 05:36] LABS: Add Manual Diff / Slide Review NO; Basophils Absolute Auto 0 /uL (0-100); Basophils Percent Auto 0.5 % (0-2); Eosinophils Absolute Auto 100 /uL (0-450); Eosinophils Percent Auto 0.8 % (2-4); Hematocrit 37.7 % (36-46); Hemoglobin 12.7 g/dL (12.0-16.0); Lymphocytes Absolute Auto 2500 /uL (1100-4500); Lymphocytes Percent Auto 35.5 % (25-40); Mean Corpuscular HGB Conc 33.5 % (30-36); Mean Corpuscular Hemoglobin 30.3 PG (26-34); Mean Corpuscular Volume 90.3 fL (80-100); Monocytes Absolute Auto 600 /uL (0-900); Monocytes Percent Auto 8.2 % (3-14); Neutrophils Absolute Auto 3900 /uL (1500-7000); Platelet Count 244 X10^3/uL (150-400); Red Blood Cell Count 4.18 X10^6/uL (4.0-5.2); Red Cell Distribution Width 12.8 % (11.6-14.8); White Blood Cell Count 7.2 X10^3/uL (4.5-11.0)
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
[2020-08-14 05:45] LABS: D Dimer < 200 ng/mL (<230)
[2020-08-14 05:46] LABS: BUN Creatinine Ratio 9.8 (6-22); Blood Urea Nitrogen 5 mg/dL (7-17); Calcium 10.1 mg/dL (8.4-10.2); Carbon Dioxide 32 mmol/L (22-32); Chloride 99 mmol/L (98-107); Estimated Glomerular Filt Rate > 60.0 mL/min (>60); Glucose 101 mg/dL (70-100); HEMOLYSIS < 15 (0-50); Potassium 3.7 mmol/L (3.4-5.1); Sodium 137 mmol/L (137-145)
[2020-08-14 05:54] LABS: Erythrocyte Sedimentation Rate 15 MM/HR (0-20)
== END 2020-08-14 06:03 | disposition home or self-care (01) ==
PROVIDERS: Emergency Provider Emergency Medicine; PCP Registered Nurse Diabetes Educator
DX: M79.605 Pain in left leg (principal)
CPT/HCPCS: 36415; 80048; 85025; 85379; 85651; 99283

== ENCOUNTER → 2020-08-18 08:10 | Outpatient (CLI) | payer OTHER, SELFPAY ==
[2019-12-13 21:57] VITALS: BMI 22.0
--- NOTE | 2020-08-18 | DI.US.S_ITS ---
PROCEDURE: US PERIPH VENOUS LOW EXTREM LT INDICATIONS: Pain in left lower leg TECHNIQUE: Real-time imaging, as well as color and pulse Doppler interrogation, were performed of the lower extremity deep veins from the inguinal ligament to the popliteal fossa. COMPARISON: None. FINDINGS: The common femoral, femoral and popliteal veins are normally compressible, and free of intraluminal thrombus. Color and pulse Doppler demonstrate normal phasic intraluminal flow. There is normal augmentation response to distal compression maneuver. IMPRESSION: Negative for deep venous thrombosis. Dictated by: Nick Ruelas M.D. on 08/18/2020 at 8:11 Approved by: Nick Ruelas M.D. on 08/18/2020 at 8:12
--- NOTE | 2020-08-18 | DI.RAD.S_ITS ---
PROCEDURE: XR FOOT LT MIN 3V INDICATIONS: LEFT KNEE PAIN' TECHNIQUE: See Dom go 3 views of the foot were acquired. COMPARISON: None. FINDINGS: Bones: No fractures or dislocations. No suspicious bony lesions. Soft tissues: No tibiotalar joint effusion. Achilles tendon appears normal. IMPRESSION: Normal left knee Dictated by: Donavan Mane M.D. on 08/18/2020 at 9:11 Approved by: Donavan Mane M.D. on 08/18/2020 at 9:18
== END ==
PROVIDERS: PCP Registered Nurse Diabetes Educator; Referring Provider Physician Assistant; Visit Provider Physician Assistant
DX: M79.662 Pain in left lower leg (principal); M25.562 Pain in left knee
CPT/HCPCS: 73562; 93971

== ENCOUNTER 2020-09-24 10:41 | Emergency (ER) | payer OTHER, SELFPAY ==
[2020-09-08 09:32] VITALS: BMI 22.0
[2020-09-24] VITALS (7 sets, daily range): BP systolic 101–131; BP diastolic 51–60; PULSE 61–90; RESP 16; TEMP 36.7; O2SAT 97–100; BMI 23.4
--- NOTE | 2020-09-24 11:07 | DI.RAD.S_ITS ---
PROCEDURE: XR CHEST 2V INDICATIONS: short of breath TECHNIQUE: 2 views of the chest were acquired. COMPARISON: [facility], , XR CHEST 1V, 12/13/2019, 18:27. [facility], , CHEST 2 VIEW, 08/04/2008, 8:17. FINDINGS: Surgical changes and devices: None. Lungs and pleura: Lungs are clear. No pleural effusions or pneumothorax. Mediastinum: Mediastinal contours are normal. Heart size is normal. Bones and chest wall: No suspicious bony abnormalities. Soft tissues appear unremarkable. IMPRESSION: No acute cardiopulmonary abnormality identified. Dictated by: Norberto Lala M.D. on 09/24/2020 at 10:38 Approved by: Norberto Lala M.D. on 09/24/2020 at 10:39
[2020-09-24 11:50] LABS: COVID19 -Nasal RAPID Negative (Negative)
--- NOTE | 2020-09-24 11:52 | ED.SOB ---
HPI - SOB/Dyspnea General Chief Complaint: Shortness of Breath/Dyspnea Stated Complaint: sent by advice nurse, o2 sat low, fatigue, HR low Time Seen by Provider: 09/24/20 10:48 Source: patient Mode of arrival: Wheelchair Limitations: no limitations History of Present Illness HPI Narrative: Patient is a 50-year-old female who is because of advice from phone nurse. She states that for the last day she has had some shortness of breath with exertion mom does not feel quite right. No fever or chills no chest pain. She has been battling left leg pain ongoing for awhile and has had multiple studies for it. Today she checked her home pulse oximeter and was noted to be 84% at rest with a heart rate of 62. Here in the emergency department his she has a good waveform and satting 98% without any respiratory distress. She denies any chest pain no palpitations. No fever. She says she just does not feel quite right. She has rubbed her body in a regular no oil and are neck in attempt to help her chronic ongoing left leg pain. MD Complaint: shortness of breath Related Data Home Medications Medication Instructions Recorded Confirmed No Known Home Medications 08/02/20 09/14/20 Allergies Allergy/AdvReac Type Severity Reaction Status Date / Time Penicillins Allergy Unknown Verified 09/14/20 08:44 Iodinated Contrast Media Allergy ITCHING Verified 09/24/20 12:21 Review of Systems Review of Systems ROS Unobtainable: All systems reviewed & are unremarkable except as noted in HPI and below Constitutional Constitutional: Denies chills, Denies fever(s), Denies lethargy and Denies weakness Cardiovascular Cardiovascular: Denies chest pain, Denies irregular heart rhythm, Denies lightheadedness, Denies palpitations and Denies orthopnea Respiratory Respiratory: Reports as per HPI Gastrointestinal Gastrointestinal: Reports abdominal pain (Mild left groin), Denies loose stools, Denies nausea and Denies vomiting Musculoskeletal Musculoskeletal: Reports as per HPI (Chronic left lower extremity pain) Integumentary/Breasts Skin/Breast: Denies pruritus, Denies erythema, Denies rash and Denies wounds Neurologic Neurologic: Denies weakness Endocrine Endocrine: Denies palpitations Patient History Medical History History of appendicitis Surgical History History of appendectomy Family History Father Hypertension Cardiovascular disease Peripheral vascular disease Mother Hypertension Cardiovascular disease Grandmother Heart attack Grandfather Stroke Social History household members: spouse Smoking Status: Never smoker Smoking Status: Never smoker alcohol intake frequency: other Substance Use Type: does not use Exam Initial Vital Signs Initial Vital Signs: Vital Signs Temperature 98.0 F 09/24/20 11:01 Pulse Rate 90 09/24/20 11:01 Respiratory Rate 16 09/24/20 11:01 Blood Pressure 131/60 09/24/20 11:01 Pulse Oximetry 100 09/24/20 11:01 GENERAL: Alert pleasant 50-year-old female smells of a Reg now and in no acute distress. HEENT: Head atraumatic,EOMI, pupils reactive, face symmetric, moist mucous membranes CARDIOVASCULAR: Regular rate and rhythm without murmurs, rubs or gallops. RESPIRATORY: Breath sounds equal bilaterally, no wheezes rales or rhonchi. ABDOMEN: Soft, nontender. Normoactive bowel sounds all 4 quadrants. No guarding or rebound. Tender left inguinal groin area no lymph nodes present EXTREMITIES: Normal range of motion, no clubbing or edema. Neurovascularly intact NEUROLOGICAL: Alert and oriented x4.Normal gait and speech. Cranial nerves II through XII grossly intact. SKIN: Warm, dry, no laceration, no petechiae, no rashes or lesions. Course Orders Ordered: ED Orders 09/24/20 11:07 XR chest 2V Stat 09/24/20 11:27 COVID19 -Nasal swab/Pre-Proc Stat 09/24/20 11:56 EKG-12 Lead Stat 09/24/20 12:01 CT abdomen pelvis w con Stat 09/24/20 12:06 Complete Blood Count AUTO DIFF Stat Comprehensive Metabolic Panel Stat D Dimer Stat Lipase Stat NT-proBNP (BNP-Adult 18+) Stat Troponin & CK Cardiac Panel Stat 09/24/20 13:00 Urinalysis and Microscopic Stat Discontinued Medications Diphenhydramine HCl (Diphenhydramine 50 Mg/Ml Vial) 25 mg IV NOW ONE Stop: 09/24/20 12:18 Last Admin: 09/24/20 12:22 Dose: 25 mg Documented by: SRINIVASA Vital Signs Vital signs: Vital Signs - 8 hr 09/24/20 11:01 09/24/20 12:12 09/24/20 12:28 Temperature 98.0 F Pulse Rate 90 87 72 Respiratory Rate 16 Blood Pressure 131/60 124/58 L Pulse Oximetry 100 98 100 09/24/20 12:30 09/24/20 13:22 09/24/20 13:23 Temperature Pulse Rate 63 74 63 Respiratory Rate Blood Pressure 110/57 L 101/51 L Pulse Oximetry 99 100 98 09/24/20 13:30 Temperature Pulse Rate 61 Respiratory Rate Blood Pressure 110/54 L Pulse Oximetry 97 MDM - SOB/Dyspnea Lab Data Attestation: I reviewed the patient's lab results. Result diagrams: 09/24/20 12:06 09/24/20 12:06 Labs: Lab Results 09/24/20 09/24/20 09/24/20 Range/Units 11:27 12:06 12:06 WBC (4.5-11.0) X10^3/uL RBC (4.0-5.2) X10^6/uL Hgb (12.0-16.0) g/dL Hct (36-46) % MCV (80-100) fL MCH (26-34) PG MCHC (30-36) % RDW (11.6-14.8) % Plt Count (150-400) X10^3/uL Neut % (Auto) (50-75) % Lymph % (Auto) (25-40) % [place] % (Auto) (3-14) % Eos % (Auto) (2-4) % Baso % (Auto) (0-2) % Neut # (Auto) (3647-7961) /uL Lymph # (Auto) (0416-8717) /uL [place] # (Auto) (0-900) /uL Eos # (Auto) (0-450) /uL Baso # (Auto) (0-100) /uL D-Dimer < 200 (<230) ng/mL Sodium (137-145) mmol/L Potassium (3.4-5.1) mmol/L Chloride (98-107) mmol/L Carbon Dioxide (22-32) mmol/L BUN (7-17) mg/dL Creatinine (0.52-1.04) mg/dL Estimated GFR (>60) mL/min BUN/Creatinine Ratio (6-22) Glucose (70-100) mg/dL Calcium (8.4-10.2) mg/dL Total Bilirubin (0.2-1.3) mg/dL AST (14-36) IU/L ALT (<35) IU/L Alkaline Phosphatase (38-126) U/L Total Creatine Kinase (30-135) U/L CK-MB (CK-2) CK-MB (CK-2) Rel Index Troponin I (0.01-0.034) ng/mL NT-Pro-B Natriuret Pep 36 (<125) pg/mL Total Protein (6.3-8.2) g/dL Albumin (3.5-5.0) g/dL Globulin (1.7-4.1) g/dL Albumin/Globulin Ratio (1.0-2.8) Lipase (23-300) U/L Urine Color Urine Appearance Urine pH (4.5-8.0) Ur Specific [place] (1.000-1.035) Urine Protein (Negative) Urine Glucose (UA) (Negative) g/dL Urine Ketones (NEGATIVE) Urine Occult Blood (Negative) Urine Nitrate (Negative) Urine Bilirubin (NEGATIVE) Urine Urobilinogen (0.2) E.U./dL Ur Leukocyte Esterase (NEGATIVE) Urine RBC (0-5/HPF) Urine WBC (0-5/HPF) Ur Squamous Epith Cells (0-5/HPF) Urine Bacteria (None) Ur Culture Indicated? SARS-CoV-2 (PCR) Negative (Negative) 09/24/20 09/24/20 09/24/20 Range/Units 12:06 12:06 13:00 WBC 4.8 (4.5-11.0) X10^3/uL RBC 3.94 L (4.0-5.2) X10^6/uL Hgb 12.1 (12.0-16.0) g/dL Hct 36.4 (36-46) % MCV 92.5 (80-100) fL MCH 30.7 (26-34) PG MCHC 33.2 (30-36) % RDW 12.8 (11.6-14.8) % Plt Count 237 (150-400) X10^3/uL Neut % (Auto) 47.7 L (50-75) % Lymph % (Auto) 43.5 H (25-40) % [place] % (Auto) 6.5 (3-14) % Eos % (Auto) 1.5 L (2-4) % Baso % (Auto) 0.8 (0-2) % Neut # (Auto) 2300 (0076-2596) /uL Lymph # (Auto) 2100 (5564-0061) /uL [place] # (Auto) 300 (0-900) /uL Eos # (Auto) 100 (0-450) /uL Baso # (Auto) 0 (0-100) /uL D-Dimer (<230) ng/mL Sodium 137 (137-145) mmol/L Potassium 3.7 (3.4-5.1) mmol/L Chloride 106 (98-107) mmol/L Carbon Dioxide 23 (22-32) mmol/L BUN 12 (7-17) mg/dL Creatinine 0.45 L (0.52-1.04) mg/dL Estimated GFR > 60.0 (>60) mL/min BUN/Creatinine Ratio 26.7 H (6-22) Glucose 99 (70-100) mg/dL Calcium 9.1 (8.4-10.2) mg/dL Total Bilirubin 0.2 (0.2-1.3) mg/dL AST 25 (14-36) IU/L ALT 15 (<35) IU/L Alkaline Phosphatase 51 (38-126) U/L Total Creatine Kinase 53 (30-135) U/L CK-MB (CK-2) TNP CK-MB (CK-2) Rel Index TNP Troponin I < 0.012 (0.01-0.034) ng/mL NT-Pro-B Natriuret Pep (<125) pg/mL Total Protein 6.7 (6.3-8.2) g/dL Albumin 4.0 (3.5-5.0) g/dL Globulin 2.7 (1.7-4.1) g/dL Albumin/Globulin Ratio 1.5 (1.0-2.8) Lipase 87 (23-300) U/L Urine Color Yellow Urine Appearance Clear Urine pH 5.5 (4.5-8.0) Ur Specific [place] <=1.005 (1.000-1.035) Urine Protein Negative (Negative) Urine Glucose (UA) Negative (Negative) g/dL Urine Ketones Negative (NEGATIVE) Urine Occult Blood 3+ H (Negative) Urine Nitrate Negative (Negative) Urine Bilirubin Negative (NEGATIVE) Urine Urobilinogen 0.2 (0.2) E.U./dL Ur Leukocyte Esterase Negative (NEGATIVE) Urine RBC 0-1/hpf (0-5/HPF) Urine WBC 0-1/hpf (0-5/HPF) Ur Squamous Epith Cells 1-5 /hpf (0-5/HPF) Urine Bacteria Few (2-10) H (None) Ur Culture Indicated? Cult not indicated SARS-CoV-2 (PCR) (Negative) Urine Dip Bedside Urine Glucose Negative Bedside Urine Bilirubin - Negative Bedside Urine Ketone - Negative Urine Specific [place] 1.015 Bedside Urine Occult Blood +++ Bedside Urine pH 6.0 Bedside Urine Protein - Negative Bedside Urine Urobilinogen - Negative Bedside Urine Nitrite - Negative Bedside Urine Leukocytes - Negative Esterase Imaging Data Chest x-ray: Radiologist's Impression: PROCEDURE: XR CHEST 2V INDICATIONS: short of breath TECHNIQUE: 2 views of the chest were acquired. COMPARISON: [facility], XR CHEST 1V, 12/13/2019, 18:27. [facility], CHEST 2 VIEW, 08/04/2008, 8:17. FINDINGS: Surgical changes and devices: None. Lungs and pleura: Lungs are clear. No pleural effusions or pneumothorax. Mediastinum: Mediastinal contours are normal. Heart size is normal. Bones and chest wall: No suspicious bony abnormalities. Soft tissues appear unremarkable. IMPRESSION: No acute cardiopulmonary abnormality identified. Dictated by: Norberto Lala M.D. on 09/24/2020 at 10:38 CT scan - abdomen/pelvis: Radiologist's Impression: PROCEDURE: CT ABDOMEN PELVIS W CON INDICATIONS: llq pain TECHNIQUE: After the administration of intravenous contrast, 5 mm thick sections acquired from the diaphragm to the symphysis. 5 mm coronal and sagittal reformats were acquired. For radiation dose reduction, the following was used: automated exposure control, adjustment of mA and/or kV according to patient size. COMPARISON: None available. FINDINGS: Image quality: Excellent. ABDOMEN: Lung bases: Lung bases are clear. Heart size is normal. Cyst or mass in the left breast measuring 2.5 cm, (2/1). Partially visualized. Solid organs: Liver is normal in size. Lesion at the dome of the liver measuring 6 x 5.8 cm, (2/11), demonstrating peripheral nodular discontinuous enhancement and consistent with a benign hemangioma. Gallbladder is unremarkable. Biliary system is non dilated. Pancreas enhances normally. Spleen is normal in size and enhancement. No adrenal nodules. Kidneys demonstrate normal size and enhancement, without hydronephrosis. Peritoneum and bowel: Bowel loops demonstrate normal wall thickness and caliber. No significant diverticulosis. No diverticulitis. Appendix is surgically absent. No free fluid or air. Nodes and vessels: No retroperitoneal or mesenteric adenopathy by size criteria. Aorta and inferior vena cava are normal in size. Miscellaneous: Tiny fat containing periumbilical hernia. PELVIS: Genitourinary: Bladder wall thickness is normal. Miscellaneous: No inguinal hernias or adenopathy. Enlarged fibroid uterus measuring 11.4 x 9.6 x 5.9 cm, estimated volume of 336 cc. Some of the fibroids are calcified. Trace free fluid in the pelvic cul-de-sac. Bones: No suspicious bony lesions. No vertebral body compression fractures. IMPRESSION: 1. No acute abnormality identified. No diverticulosis or diverticulitis. 2. Bulky enlarged fibroid uterus measuring 11.4 cm, volume of 336 cc. 3. Large benign hemangioma at the dome of the liver measuring 6 cm. 4. Left breast cyst or mass measuring 2.5 cm. -Recommend diagnostic mammogram and ultrasound. Dictated by: Norberto Lala M.D. on 09/24/2020 at 12:09 Approved by: Norberto Lala M.D. on 09/24/2020 at 12:17 ECG Data Attestation: I personally reviewed and interpreted this ECG as follows: Prior ECG tracings: available for review Interpretation: Normal sinus rhythm rate 65 p.r. interval 140 QRS [address] changes similar to previous EKG MDM Narrative Medical decision making narrative: No cause of patient's shortness of breath COVID is negative blood work is done fibroids in her uterus with hemangioma in her liver. At this time no cause of her shortness of breath. No infection. Unclear what is causing tenderness in her left leg. Left leg seems to be a chronic ongoing issue. Unclear why she is tender in her left groin, has had multiple outpatient workup including ultrasound and x-ray is at this time no further workup left leg. Recommend conservative treatment in her shortness of breath. Vitals have been stable while in the emergency department Discharge Plan Departure Patient Disposition: Home Clinical Impression: Acute upper respiratory infection Instructions: DI for Viral Upper Respiratory Infection -- Adult Activity Restrictions/Additional Instructions: *You have been diagnosed with upper respiratory infection *What to do: At this time you likely have a virus this should improve over time without any antibiotics or medications please be sure to have a mammogram it was found that you have a the left mass or cyst. You were also found to have fibroids in her uterus along with a hemangioma which is a collection of blood vessels in your liver *Continue to take medications as directed *Follow up with your primary care provider in 2-3 days *Return to ER if you should have increasing shortness of breath weakness confusion, pain or any new, worsening or concerning symptoms Prescriptions: No Action No Known Home Medications RF: 0 Referrals: Shady Porter ARNP [Primary Care Provider] -
--- NOTE | 2020-09-24 12:01 | DI.CT.S_ITS ---
PROCEDURE: CT ABDOMEN PELVIS W CON INDICATIONS: llq pain TECHNIQUE: After the administration of intravenous contrast, 5 mm thick sections acquired from the diaphragm to the symphysis. 5 mm coronal and sagittal reformats were acquired. For radiation dose reduction, the following was used: automated exposure control, adjustment of mA and/or kV according to patient size. COMPARISON: None available. FINDINGS: Image quality: Excellent. ABDOMEN: Lung bases: Lung bases are clear. Heart size is normal. Cyst or mass in the left breast measuring 2.5 cm, (2/1). Partially visualized. Solid organs: Liver is normal in size. Lesion at the dome of the liver measuring 6 x 5.8 cm, (2/11), demonstrating peripheral nodular discontinuous enhancement and consistent with a benign hemangioma. Gallbladder is unremarkable. Biliary system is non dilated. Pancreas enhances normally. Spleen is normal in size and enhancement. No adrenal nodules. Kidneys demonstrate normal size and enhancement, without hydronephrosis. Peritoneum and bowel: Bowel loops demonstrate normal wall thickness and caliber. No significant diverticulosis. No diverticulitis. Appendix is surgically absent. No free fluid or air. Nodes and vessels: No retroperitoneal or mesenteric adenopathy by size criteria. Aorta and inferior vena cava are normal in size. Miscellaneous: Tiny fat containing periumbilical hernia. PELVIS: Genitourinary: Bladder wall thickness is normal. Miscellaneous: No inguinal hernias or adenopathy. Enlarged fibroid uterus measuring 11.4 x 9.6 x 5.9 cm, estimated volume of 336 cc. Some of the fibroids are calcified. Trace free fluid in the pelvic cul-de-sac. Bones: No suspicious bony lesions. No vertebral body compression fractures. IMPRESSION: 1. No acute abnormality identified. No diverticulosis or diverticulitis. 2. Bulky enlarged fibroid uterus measuring 11.4 cm, volume of 336 cc. 3. Large benign hemangioma at the dome of the liver measuring 6 cm. 4. Left breast cyst or mass measuring 2.5 cm. -Recommend diagnostic mammogram and ultrasound. Dictated by: Norberto Lala M.D. on 09/24/2020 at 12:09 Approved by: Norberto Lala M.D. on 09/24/2020 at 12:17
[2020-09-24 12:17] LABS: Add Manual Diff / Slide Review NO; Basophils Absolute Auto 0 /uL (0-100); Basophils Percent Auto 0.8 % (0-2); Eosinophils Absolute Auto 100 /uL (0-450); Eosinophils Percent Auto 1.5 % (2-4); Hematocrit 36.4 % (36-46); Hemoglobin 12.1 g/dL (12.0-16.0); Lymphocytes Absolute Auto 2100 /uL (1100-4500); Lymphocytes Percent Auto 43.5 % (25-40); Mean Corpuscular HGB Conc 33.2 % (30-36); Mean Corpuscular Hemoglobin 30.7 PG (26-34); Mean Corpuscular Volume 92.5 fL (80-100); Monocytes Absolute Auto 300 /uL (0-900); Monocytes Percent Auto 6.5 % (3-14); Neutrophils Absolute Auto 2300 /uL (1500-7000); Neutrophils Percent Auto 47.7 % (50-75); Platelet Count 237 X10^3/uL (150-400); Red Blood Cell Count 3.94 X10^6/uL (4.0-5.2); Red Cell Distribution Width 12.8 % (11.6-14.8); White Blood Cell Count 4.8 X10^3/uL (4.5-11.0)
[2020-09-24] MEDS: diphenhydrAMINE 50 MG/ML VIAL 25 MG IV (12:22)
[2020-09-24 12:28] LABS: Alanine Aminotransferase 15 IU/L (<35); Albumin Globulin Ratio 1.5 (1.0-2.8); Alkaline Phosphatase 51 U/L (38-126); Aspartate Aminotransferase 25 IU/L (14-36); BUN Creatinine Ratio 26.7 (6-22); Bilirubin Total 0.2 mg/dL (0.2-1.3); Blood Urea Nitrogen 12 mg/dL (7-17); Calcium 9.1 mg/dL (8.4-10.2); Carbon Dioxide 23 mmol/L (22-32); Chloride 106 mmol/L (98-107); Creatine Kinase 53 U/L (30-135); Estimated Glomerular Filt Rate > 60.0 mL/min (>60); Globulin 2.7 g/dL (1.7-4.1); Glucose 99 mg/dL (70-100); HEMOLYSIS < 15 (0-50); Lipase 87 U/L (23-300); Potassium 3.7 mmol/L (3.4-5.1); Sodium 137 mmol/L (137-145); Total Protein 6.7 g/dL (6.3-8.2)
[2020-09-24 12:37] LABS: NT-proBNP (BNP-Adult 18+) 36 pg/mL (<125)
[2020-09-24 12:40] LABS: D Dimer < 200 ng/mL (<230); Troponin I < 0.012 ng/mL (0.01-0.034)
[2020-09-24 13:20] LABS: Appearance Urine UA CLEAR; Bilirubin Urine UA NEGATIVE (NEGATIVE); Color Urine UA YELLOW; Glucose Urine UA NEGATIVE (Negative); Ketones Urine UA NEGATIVE (NEGATIVE); Leukocyte Esterase Urine UA NEGATIVE (NEGATIVE); Nitrite Urine UA NEGATIVE (Negative); Occult Blood Urine UA 3+ (Negative); Protein Urine UA NEGATIVE (Negative); Specific Gravity Urine UA <=1.005 (1.000-1.035); Urobilinogen Urine UA 0.2 E.U./dL (0.2); pH Urine UA 5.5 (4.5-8.0)
[2020-09-24 13:33] LABS: RBC Urine 0-1/HPF (0-5/HPF); Squamous Epithelial Cell Urine 1-5 /HPF (0-5/HPF); WBC Urine 0-1/HPF (0-5/HPF)
[2020-09-24 13:34] LABS: Bacteria Urine Few (2-10); Culture Indicated Urine Cult Not Indicated
== END 2020-09-24 14:02 | disposition home or self-care (01) ==
PROVIDERS: Emergency Provider Emergency Medicine; PCP Registered Nurse Diabetes Educator
DX: J06.9 Acute upper respiratory infection, unspecified (principal); R10.32 Left lower quadrant pain; Z20.822 Contact with and (suspected) exposure to COVID-19
CPT/HCPCS: 36415; 71046; 74177; 80053; 81001; 81003; 82550; 83690; 83880; 84484; 85025; 85379; 87635; 93005; 93010; 96374; 99284; C9803; J1200; Q9967

== ENCOUNTER 2020-11-30 22:09 | Emergency (ER) | payer OTHER, SELFPAY ==
[2020-09-08 09:32] VITALS: BMI 22.0
[2020-11-30 22:14] VITALS: BP 150/67; PULSE 83; RESP 14; TEMP 37.1; O2SAT 99; BMI 24.6
== END 2020-11-30 23:15 | disposition left against medical advice (07) ==
PROVIDERS: Emergency Provider Emergency Medicine; PCP Registered Nurse Diabetes Educator
CPT/HCPCS: 99281

== ENCOUNTER → 2021-01-10 11:32 | Outpatient (CLI) | payer OTHER, SELFPAY ==
[2020-09-08 09:32] VITALS: BMI 22.0
[2021-01-10 12:40] LABS: Add Manual Diff / Slide Review NO; Basophils Absolute Auto 0 /uL (0-100); Basophils Percent Auto 0.8 % (0-2); Eosinophils Absolute Auto 100 /uL (0-450); Eosinophils Percent Auto 1.7 % (2-4); Hematocrit 38.8 % (36-46); Lymphocytes Absolute Auto 2100 /uL (1100-4500); Lymphocytes Percent Auto 48.2 % (25-40); Mean Corpuscular HGB Conc 33.4 % (30-36); Mean Corpuscular Hemoglobin 30.5 PG (26-34); Mean Corpuscular Volume 91.3 fL (80-100); Monocytes Absolute Auto 300 /uL (0-900); Neutrophils Absolute Auto 1800 /uL (1500-7000); Neutrophils Percent Auto 42.3 % (50-75); Platelet Count 233 X10^3/uL (150-400); Red Blood Cell Count 4.25 X10^6/uL (4.0-5.2); Red Cell Distribution Width 13.1 % (11.6-14.8); White Blood Cell Count 4.3 X10^3/uL (4.5-11.0)
[2021-01-10 13:39] LABS: Alanine Aminotransferase 16 IU/L (<35); Albumin 4.1 g/dL (3.5-5.0); Albumin Globulin Ratio 1.3 (1.0-2.8); Alkaline Phosphatase 44 U/L (38-126); Aspartate Aminotransferase 29 IU/L (14-36); BUN Creatinine Ratio 12.5 (6-22); Bilirubin Total 0.4 mg/dL (0.2-1.3); Blood Urea Nitrogen 6 mg/dL (7-17); C-Reactive Protein Quant < 0.5 mg/dL (<1.0); Calcium 9.6 mg/dL (8.4-10.2); Carbon Dioxide 27 mmol/L (22-32); Chloride 105 mmol/L (98-107); Estimated Glomerular Filt Rate > 60.0 mL/min (>60); Globulin 3.1 g/dL (1.7-4.1); Glucose 92 mg/dL (70-100); HEMOLYSIS < 15 (0-50); Potassium 3.9 mmol/L (3.4-5.1); Sodium 137 mmol/L (137-145); Total Protein 7.2 g/dL (6.3-8.2)
[2021-01-10 13:40] LABS: Iron 59 ug/dL (37-170)
[2021-01-10 13:49] LABS: Total Iron Binding Capacity 366 ug/dL (265-497)
[2021-01-10 14:09] LABS: Ferritin 14 ng/mL (11-264)
[2021-01-12 12:22] LABS: Glucose-6-Phosphate Dehydrogen 267 (127-427)
== END ==
PROVIDERS: PCP Registered Nurse Diabetes Educator; Referring Provider Naturopath; Visit Provider Naturopath
DX: D50.9 Iron deficiency anemia, unspecified (principal); R59.9 Enlarged lymph nodes, unspecified; L03.324 Acute lymphangitis of groin
CPT/HCPCS: 36415; 80053; 82728; 82955; 83540; 83550; 85025; 85041; 86140

== ENCOUNTER → 2021-01-30 15:50 | Outpatient (CLI) | payer OTHER, SELFPAY ==
[2020-09-08 09:32] VITALS: BMI 22.0
[2021-01-30 16:08] LABS: Add Manual Diff / Slide Review NO; Basophils Absolute Auto 0 /uL (0-100); Basophils Percent Auto 0.6 % (0-2); Eosinophils Absolute Auto 0 /uL (0-450); Eosinophils Percent Auto 0.5 % (2-4); Hematocrit 36.4 % (36-46); Hemoglobin 12.1 g/dL (12.0-16.0); Lymphocytes Absolute Auto 2400 /uL (1100-4500); Lymphocytes Percent Auto 38.1 % (25-40); Mean Corpuscular HGB Conc 33.3 % (30-36); Mean Corpuscular Hemoglobin 30.4 PG (26-34); Mean Corpuscular Volume 91.4 fL (80-100); Monocytes Absolute Auto 500 /uL (0-900); Monocytes Percent Auto 8.4 % (3-14); Neutrophils Absolute Auto 3200 /uL (1500-7000); Neutrophils Percent Auto 52.4 % (50-75); Platelet Count 288 X10^3/uL (150-400); Red Blood Cell Count 3.98 X10^6/uL (4.0-5.2); Red Cell Distribution Width 13.1 % (11.6-14.8); White Blood Cell Count 6.2 X10^3/uL (4.5-11.0)
[2021-01-30 16:27] LABS: Alanine Aminotransferase 19 IU/L (<35); Albumin 4.3 g/dL (3.5-5.0); Albumin Globulin Ratio 1.4 (1.0-2.8); Alkaline Phosphatase 62 U/L (38-126); Aspartate Aminotransferase 32 IU/L (14-36); BUN Creatinine Ratio 25.5 (6-22); Bilirubin Total 0.4 mg/dL (0.2-1.3); Blood Urea Nitrogen 12 mg/dL (7-17); Calcium 9.7 mg/dL (8.4-10.2); Carbon Dioxide 23 mmol/L (22-32); Chloride 105 mmol/L (98-107); Estimated Glomerular Filt Rate > 60.0 mL/min (>60); Glucose 96 mg/dL (70-100); HEMOLYSIS < 15 (0-50); Potassium 4.1 mmol/L (3.4-5.1); Sodium 136 mmol/L (137-145); Total Protein 7.3 g/dL (6.3-8.2)
[2021-01-30 17:08] LABS: Erythrocyte Sedimentation Rate 17 MM/HR (0-20)
== END ==
PROVIDERS: PCP Registered Nurse Diabetes Educator; Referring Provider Naturopath; Visit Provider Naturopath
DX: R59.1 Generalized enlarged lymph nodes (principal); R52 Pain, unspecified; B34.9 Viral infection, unspecified
CPT/HCPCS: 36415; 80053; 85025; 85651

== ENCOUNTER 2021-04-16 03:18 | Emergency (ER) | payer OTHER, SELFPAY ==
[2020-09-08 09:32] VITALS: BMI 22.0
[2021-04-16] VITALS (9 sets, daily range): BP systolic 106–143; BP diastolic 53–72; PULSE 78–114; RESP 14–23; TEMP 36; O2SAT 97–100; BMI 22.2
--- NOTE | 2021-04-16 03:21 | ED_ITS ---
HPI - Chest Pain General Chief Complaint: Chest Pain Stated Complaint: chest pain x1 day Time Seen by Provider: 04/16/21 03:20 History of Present Illness HPI narrative: 50-year-old female nonsmoker medical history presents with a chief complaint of many days if not weeks of not feeling right. She frequently feels fatigued and short of breath and has many episodes of pain throughout her body including her chest, abdomen and legs. She states at times it feels pressure and squeezing like and other times it feels like electric or lightening bolts. She currently is feeling pretty much asymptomatic but was having a hard time sleeping answered decision to come CS. She denies any classic palliation or provocation of her symptoms. On occasion she feels dizzy and lightheaded but not always. She denies any headache or blurred vision. She denies any runny nose, sore throat or cough. She denies any change in medications or dietary change though frequently has little appetite and as a consequence has lost some weight. She denies any recent travel, history of cancer or blood clot. She has had no trauma or injuries. She is frequently active and denies any kind of sedentary element to her lifestyle. Related Data Home Medications Medication Instructions Recorded Confirmed No Known Home Medications 08/02/20 09/14/20 Allergies Allergy/AdvReac Type Severity Reaction Status Date / Time Penicillins Allergy Unknown Verified 11/30/20 22:14 Iodinated Contrast Media Allergy ITCHING Verified 11/30/20 22:14 Review of Systems Review of Systems Narrative: GENERAL: See HPI HEENT: Denies sinus pain, ear pain, sore throat, difficulty swallowing, dizziness. RESPIRATORY: See HPI CARDIOVASCULAR: See HPI GASTROINTESTINAL: Denies nausea, vomiting, abdominal pain, diarrhea, constipat ion, melena. : Denies dysuria, frequency, incontinence, hematuria, urinary retention. MUSCULOSKELETAL: denies weakness, joint pain, or bony pain SKIN: Denies rash, skin lesions, or other NEUROLOGIC: Denies weakness, headache, numbness, change in speech, confusion, seizures, incoordination. PSYCHIATRIC: No concerning psychosocial issues. 12 point review of systems is negative except for those stated above Patient History Medical History History of appendicitis Surgical History History of appendectomy Family History Father Hypertension Cardiovascular disease Peripheral vascular disease Mother Hypertension Cardiovascular disease Grandmother Heart attack Grandfather Stroke Social History household members: spouse Smoking Status: Never smoker Smoking Status: Never smoker alcohol intake frequency: other Substance Use Type: does not use Exam Narrative Exam Narrative: GENERAL: [50 year old patient appears stated age. Well-developed patient, in mild distress. HEAD: Atraumatic. Normocephalic. EYES: Pupils equal round and reactive. Extraocular motions intact. No scleral icterus. No injection or drainage. ENT: Nose without bleeding, purulent drainage. Throat without erythema, tonsillar hypertrophy or exudate. Airway patent. NECK: Trachea midline. Non tender CARDIOVASCULAR: Regular rate and rhythm without murmurs, gallops, or rubs. RESPIRATORY: Clear to auscultation. Breath sounds equal bilaterally. No wheezes, rales, or rhonchi. GASTROINTESTINAL: Abdomen soft, non-tender, nondistended. EXTREMITIES: No edema or joint tenderness. BACK: Nontender without deformity or crepitance. No flank tenderness. NEURO: AOx3. SKIN: No rash or erythema of visible areas Initial Vital Signs Initial Vital Signs: Vital Signs Pulse Rate 101 H 04/16/21 03:25 Blood Pressure 133/72 04/16/21 03:25 Pulse Oximetry 99 04/16/21 03:25 Course Orders Ordered: ED Orders 04/16/21 EKG-12 Lead Stat 04/16/21 03:30 COVID19 -Nasal swab/Pre-Proc Stat 04/16/21 03:31 D Dimer Stat TSH w/ Reflex to FT4 Stat 04/16/21 03:32 Complete Blood Count AUTO DIFF Stat Comprehensive Metabolic Panel Stat Magnesium Stat NT-proBNP (BNP-Adult 18+) Stat Troponin & CK Cardiac Panel Stat Discontinued Medications Diphenhydramine HCl (Diphenhydramine 50 Mg/Ml Vial) 25 mg IV NOW ONE Stop: 04/16/21 03:34 Last Admin: 04/16/21 04:59 Dose: Not Given Documented by: Sodium Chloride (Normal Saline 0.9%) 1,000 mls @ 1,000 mls/hr IV BOLUS ONE Stop: 04/16/21 04:30 Last Admin: 04/16/21 04:15 Dose: 1,000 mls/hr Documented by: Methylprednisolone (Methylprednisolone 125 Mg/2 Ml Vial) 125 mg IV NOW ONE Stop: 04/16/21 03:32 Last Admin: 04/16/21 04:59 Dose: Not Given Documented by: Vital Signs Vital signs: Vital Signs - 8 hr 04/16/21 03:25 04/16/21 03:30 04/16/21 03:31 Temperature Pulse Rate 101 H 91 H 90 Respiratory Rate Blood Pressure 133/72 143/65 H Pulse Oximetry 99 99 99 04/16/21 03:35 04/16/21 03:46 04/16/21 04:00 Temperature 96.8 F L Pulse Rate 114 H 80 87 Respiratory Rate 20 14 18 Blood Pressure 133/72 117/58 L 109/55 L Pulse Oximetry 98 98 98 04/16/21 04:18 04/16/21 04:30 04/16/21 05:00 Temperature Pulse Rate 78 87 90 Respiratory Rate 16 17 23 Blood Pressure 115/53 L 106/53 L 127/58 L Pulse Oximetry 100 98 97 MDM - Chest Pain Lab Data Result diagrams: 04/16/21 03:45 04/16/21 03:45 Labs: Lab Results 04/16/21 04/16/21 04/16/21 Range/Units 03:30 03:45 03:45 WBC (4.5-11.0) X10^3/uL RBC (4.0-5.2) X10^6/uL Hgb (12.0-16.0) g/dL Hct (36-46) % MCV (80-100) fL MCH (26-34) PG MCHC (30-36) % RDW (11.6-14.8) % Plt Count (150-400) X10^3/uL Neut % (Auto) (50-75) % Lymph % (Auto) (25-40) % [place] % (Auto) (3-14) % Eos % (Auto) (2-4) % Baso % (Auto) (0-2) % Neut # (Auto) (7273-3802) /uL Lymph # (Auto) (4022-5827) /uL [place] # (Auto) (0-900) /uL Eos # (Auto) (0-450) /uL Baso # (Auto) (0-100) /uL D-Dimer < 200 (<230) ng/mL Sodium (137-145) mmol/L Potassium (3.4-5.1) mmol/L Chloride (98-107) mmol/L Carbon Dioxide (22-32) mmol/L BUN (7-17) mg/dL Creatinine (0.52-1.04) mg/dL Estimated GFR (>60) mL/min BUN/Creatinine Ratio (6-22) Glucose (70-100) mg/dL Calcium (8.4-10.2) mg/dL Magnesium (1.6-2.3) mg/dL Total Bilirubin (0.2-1.3) mg/dL AST (14-36) IU/L ALT (<35) IU/L Alkaline Phosphatase (38-126) U/L Total Creatine Kinase (30-135) U/L CK-MB (CK-2) CK-MB (CK-2) Rel Index Troponin I (0.01-0.034) ng/mL NT-Pro-B Natriuret Pep (<125) pg/mL Total Protein (6.3-8.2) g/dL Albumin (3.5-5.0) g/dL Globulin (1.7-4.1) g/dL Albumin/Globulin Ratio (1.0-2.8) TSH 2.06 (0.47-4.68) uIU/mL SARS-CoV-2 (PCR) Negative (Negative) 04/16/21 04/16/21 Range/Units 03:45 03:45 WBC 6.5 (4.5-11.0) X10^3/uL RBC 4.42 (4.0-5.2) X10^6/uL Hgb 13.4 (12.0-16.0) g/dL Hct 40.5 (36-46) % MCV 91.4 (80-100) fL MCH 30.2 (26-34) PG MCHC 33.1 (30-36) % RDW 12.8 (11.6-14.8) % Plt Count 246 (150-400) X10^3/uL Neut % (Auto) 46.8 L (50-75) % Lymph % (Auto) 42.2 H (25-40) % [place] % (Auto) 9.4 (3-14) % Eos % (Auto) 1.1 L (2-4) % Baso % (Auto) 0.5 (0-2) % Neut # (Auto) 3000 (1245-9184) /uL Lymph # (Auto) 2700 (1984-3351) /uL [place] # (Auto) 600 (0-900) /uL Eos # (Auto) 100 (0-450) /uL Baso # (Auto) 0 (0-100) /uL D-Dimer (<230) ng/mL Sodium 140 (137-145) mmol/L Potassium 3.7 (3.4-5.1) mmol/L Chloride 104 (98-107) mmol/L Carbon Dioxide 29 (22-32) mmol/L BUN 7 (7-17) mg/dL Creatinine 0.43 L (0.52-1.04) mg/dL Estimated GFR > 60.0 (>60) mL/min BUN/Creatinine Ratio 16.3 (6-22) Glucose 91 (70-100) mg/dL Calcium 9.7 (8.4-10.2) mg/dL Magnesium 2.2 (1.6-2.3) mg/dL Total Bilirubin 0.4 (0.2-1.3) mg/dL AST 36 (14-36) IU/L ALT 15 (<35) IU/L Alkaline Phosphatase 67 (38-126) U/L Total Creatine Kinase 49 (30-135) U/L CK-MB (CK-2) TNP CK-MB (CK-2) Rel Index TNP Troponin I < 0.012 (0.01-0.034) ng/mL NT-Pro-B Natriuret Pep 23 (<125) pg/mL Total Protein 7.6 (6.3-8.2) g/dL Albumin 4.7 (3.5-5.0) g/dL Globulin 2.9 (1.7-4.1) g/dL Albumin/Globulin Ratio 1.6 (1.0-2.8) TSH (0.47-4.68) uIU/mL SARS-CoV-2 (PCR) (Negative) Urine Dip Bedside Urine Glucose Negative Bedside Urine Bilirubin - Negative Bedside Urine Ketone - Negative Urine Specific [place] 1.030 Bedside Urine Occult Blood - Negative Bedside Urine pH 5.5 Bedside Urine Protein - Negative Bedside Urine Urobilinogen - Negative Bedside Urine Nitrite - Negative Bedside Urine Leukocytes - Negative Esterase ECG Data Interpretation: EKG is normal sinus rhythm rate [83 ] and free of any signs of ischemia or ectopy. No ST segmental elevation or depression. No T wave in versions MDM Narrative Medical decision making narrative: Multiple causes of chest pain considered including UT, PE, pneumothorax, pneumonia, aortic dissection, and pleurisy. Patient reports no radiation, no diaphoresis, no provocation with exertion, and no vomiting Despite many days of symptoms patient has nonocclusive EKG, normal troponin and no ongoing symptoms. Pulmonary embolism considered but thought less likely gi tracy negative D-dimer. Other diagnoses including electrolyte abnormality, anemia among others considered but no clear etiology Patient's symptoms improved over duration of stay with above-stated therapies. Findings and discharge diagnosis discussed with patient/family followed by verbalization of understanding Return precautions discussed with patient/family whom verbalize understanding. Discharge Plan Departure Patient Disposition: Home Clinical Impression: Atypical chest pain Instructions: DI for Atypical Chest Pain, DI for Shortness of Breath Activity Restrictions/Additional Instructions: *You have been diagnosed with [ Atypical Chest Pain and dyspnea with very reassuring physical exam, labs, and EKG. ] *What to do: *Please continue to take your regular medications as directed. [ ] New medication prescriptions sent to your pharmacy: [ ] [ ] New medication written as a paper prescription [ x] No new medications given *Please follow up with your primary care provider in 2-3 days, call for an appointment. Let them know you were seen in the Emergency Department and that we ask that you be seen in follow up. We will electronically transmit a record of today's note if your PCP is in our system *If you do not have a primary care provider please contact the [facility] Resource line at [phone]. They will ask some questions about your medical history and help get you set up with a doctor in the community. *Return to Emergency Department if you should have any new, worsening or concerning symptoms, such as [fever greater than 101 F, shaking chills, worsening pain, persistent vomiting or other bothersome symptoms] Prescriptions: No Action No Known Home Medications RF: 0 Referrals: Shady Porter ARNP [Primary Care Provider] -
[2021-04-16 04:05] LABS: Add Manual Diff / Slide Review NO; Basophils Absolute Auto 0 /uL (0-100); Basophils Percent Auto 0.5 % (0-2); Eosinophils Absolute Auto 100 /uL (0-450); Eosinophils Percent Auto 1.1 % (2-4); Hematocrit 40.5 % (36-46); Hemoglobin 13.4 g/dL (12.0-16.0); Lymphocytes Absolute Auto 2700 /uL (1100-4500); Lymphocytes Percent Auto 42.2 % (25-40); Mean Corpuscular HGB Conc 33.1 % (30-36); Mean Corpuscular Hemoglobin 30.2 PG (26-34); Mean Corpuscular Volume 91.4 fL (80-100); Monocytes Absolute Auto 600 /uL (0-900); Monocytes Percent Auto 9.4 % (3-14); Neutrophils Absolute Auto 3000 /uL (1500-7000); Neutrophils Percent Auto 46.8 % (50-75); Platelet Count 246 X10^3/uL (150-400); Red Blood Cell Count 4.42 X10^6/uL (4.0-5.2); Red Cell Distribution Width 12.8 % (11.6-14.8); White Blood Cell Count 6.5 X10^3/uL (4.5-11.0)
[2021-04-16 04:09] LABS: Alanine Aminotransferase 15 IU/L (<35); Albumin 4.7 g/dL (3.5-5.0); Albumin Globulin Ratio 1.6 (1.0-2.8); Alkaline Phosphatase 67 U/L (38-126); Aspartate Aminotransferase 36 IU/L (14-36); BUN Creatinine Ratio 16.3 (6-22); Bilirubin Total 0.4 mg/dL (0.2-1.3); Blood Urea Nitrogen 7 mg/dL (7-17); Calcium 9.7 mg/dL (8.4-10.2); Carbon Dioxide 29 mmol/L (22-32); Chloride 104 mmol/L (98-107); Creatine Kinase 49 U/L (30-135); D Dimer < 200 ng/mL (<230); Estimated Glomerular Filt Rate > 60.0 mL/min (>60); Globulin 2.9 g/dL (1.7-4.1); Glucose 91 mg/dL (70-100); HEMOLYSIS 27 (0-50); Magnesium 2.2 mg/dL (1.6-2.3); Potassium 3.7 mmol/L (3.4-5.1); Sodium 140 mmol/L (137-145); Total Protein 7.6 g/dL (6.3-8.2)
[2021-04-16] MEDS: SODIUM CHLORIDE 0.9% 1,000 ML 1000 ML IV (04:15)
[2021-04-16 04:21] LABS: NT-proBNP (BNP-Adult 18+) 23 pg/mL (<125); Troponin I < 0.012 ng/mL (0.01-0.034)
[2021-04-16 04:34] LABS: COVID19 -Nasal RAPID Negative (Negative)
[2021-04-16 04:49] LABS: TSH w/ Reflex to FT4 2.06 uIU/mL (0.47-4.68)
== END 2021-04-16 05:10 | disposition home or self-care (01) ==
PROVIDERS: Emergency Provider Emergency Medicine; PCP Registered Nurse Diabetes Educator
DX: R07.89 Other chest pain (principal); R06.02 Shortness of breath; Z20.822 Contact with and (suspected) exposure to COVID-19
CPT/HCPCS: 36415; 80053; 81003; 82550; 83735; 83880; 84443; 84484; 85025; 85379; 87635; 93005; 93010; 96360; 96361; 99284; C9803

== ENCOUNTER 2021-04-19 18:48 | Emergency (ER) | payer OTHER, SELFPAY ==
[2020-09-08 09:32] VITALS: BMI 22.0
[2021-04-19 19:10] VITALS: BP 135/64; PULSE 88; RESP 20; TEMP 37.2; O2SAT 99
== END 2021-04-19 19:20 | disposition left against medical advice (07) ==
PROVIDERS: Emergency Provider Emergency Medicine; PCP Registered Nurse Diabetes Educator
DX: R51.9 Headache, unspecified (principal)
CPT/HCPCS: 99281

== ENCOUNTER 2021-04-20 06:02 | Emergency (ER) | payer OTHER, SELFPAY ==
[2020-09-08 09:32] VITALS: BMI 22.0
[2021-04-20] VITALS (9 sets, daily range): BP systolic 108–134; BP diastolic 55–70; PULSE 68–88; RESP 13–23; TEMP 36.6; O2SAT 96–99
--- NOTE | 2021-04-20 06:19 | ED_ITS ---
HPI - Headache <La Polanco DO - Last Filed: 04/21/21 06:45> General Chief Complaint: Headache Stated Complaint: head pain x1 day Time Seen by Provider: 04/20/21 06:18 Source: patient Mode of arrival: Ambulatory Limitations: no limitations History of Present Illness HPI Narrative: 50-year-old female who initially stated she had some left-sided head pain but her main complaint to myself was left upper extremity pressure as well as pressure in her substernal chest. Patient states this has been going since Friday in her arm. Intermittently in her chest. She has had some palpitations at times. She has felt short of breath at times. She has not had any nausea vomiting. She has not passed out. She has not any new swelling in her extremities. No numbness, tingling or weakness. She has had normal movement. Patient has not had any fevers. No cold, cough or congestion. She t ried some [place] on her left arm which was not helpful. She states she was seen here around Friday and was evaluated at that time. She follows with a naturopathic regularly. She does not take any other daily prescription medications. She has had her appendix removed. No tobacco, no illicit. Denies any recent ETOH. Family history she has a grandfather with cardiac issues. Her dad has chest pains at times but she states he is in his 80s but does not have known cardiac disease. Related Data Home Medications Medication Instructions Recorded Confirmed No Known Home Medications 08/02/20 09/14/20 Allergies Allergy/AdvReac Type Severity Reaction Status Date / Time Penicillins Allergy Unknown Verified 11/30/20 22:14 Iodinated Contrast Media Allergy ITCHING Verified 11/30/20 22:14 Review of Systems <La Polanco DO - Last Filed: 04/21/21 06:45> Review of Systems ROS Unobtainable: All systems reviewed & are unremarkable except as noted in HPI and below Patient History <La Polanco DO - Last Filed: 04/21/21 06:45> Medical History History of appendicitis Surgical History History of appendectomy Family History Father Hypertension Cardiovascular disease Peripheral vascular disease Mother Hypertension Cardiovascular disease Grandmother Heart attack Grandfather Stroke Social History household members: spouse Smoking Status: Never smoker Smoking Status: Never smoker alcohol intake frequency: other Substance Use Type: does not use Exam <La Polanco DO - Last Filed: 04/21/21 06:45> Narrative Exam Narrative: GENERAL: Alert and oriented x three, female in mild distress. HEENT: Head normocephalic, atraumatic, EOMI, pupils reactive, face symmetric, moist mucous membranes NECK: Supple, full range of motion CARDIOVASCULAR: Regular rate and rhythm without murmurs, rubs or gallops. 2+ pulses bilateral upper extremities. RESPIRATORY: Breath sounds equal bilaterally, no wheezes rales or rhonchi. ABDOMEN: Soft, nontender. Normoactive bowel sounds all 4 quadrants. No guarding or rebound, rigidity, no mass : No CVA tenderness EXTREMITIES: Normal range of motion, no clubbing or edema. Neurovascularly intact. 5/5 muscle strength upper extremities. NEUROLOGICAL: Cranial nerves II through XII grossly intact. Moving all extremities SKIN: Warm, dry, no petechiae, no rashes or lesions. Initial Vital Signs Initial Vital Signs: Vital Signs Temperature 98 F 04/20/21 06:14 Pulse Rate 88 04/20/21 06:14 Respiratory Rate 18 04/20/21 06:14 Blood Pressure 134/67 04/20/21 06:14 Pulse Oximetry 98 04/20/21 06:14 <Joy Riggs MD - Last Filed: 04/20/21 09:06> Initial Vital Signs Initial Vital Signs: Vital Signs Temperature 98 F 04/20/21 06:14 Pulse Rate 88 04/20/21 06:14 Respiratory Rate 18 04/20/21 06:14 Blood Pressure 134/67 04/20/21 06:14 Pulse Oximetry 98 04/20/21 06:14 Course <La Polanco DO - Last Filed: 04/21/21 06:45> Orders Ordered: Discontinued Medications Aspirin (Aspirin 81 Mg Chew Tab) 324 mg PO NOW ONE Stop: 04/20/21 06:39 Last Admin: 04/20/21 07:08 Dose: 324 mg Documented by: SAMUEL Vital Signs Vital signs: Vital Signs - 8 hr 04/20/21 06:14 04/20/21 07:02 04/20/21 07:30 Temperature 98 F Pulse Rate 88 69 68 Respiratory Rate 18 15 13 Blood Pressure 134/67 Pulse Oximetry 98 98 97 <Joy Riggs MD - Last Filed: 04/20/21 09:06> Orders Ordered: Discontinued Medications Aspirin (Aspirin 81 Mg Chew Tab) 324 mg PO NOW ONE Stop: 04/20/21 06:39 Last Admin: 04/20/21 07:08 Dose: 324 mg Documented by: SAMUEL Vital Signs Vital signs: Vital Signs - 8 hr 04/20/21 06:14 04/20/21 07:02 04/20/21 07:30 Temperature 98 F Pulse Rate 88 69 68 Respiratory Rate 18 15 13 Blood Pressure 134/67 Pulse Oximetry 98 98 97 MDM - Headache <La Polanco DO - Last Filed: 04/21/21 06:45> Lab Data Result diagrams: 04/20/21 07:20 04/20/21 07:20 Labs: Lab Results 04/20/21 04/20/21 Range/Units 07:20 07:20 WBC 4.6 (4.5-11.0) X10^3/uL RBC 4.25 (4.0-5.2) X10^6/uL Hgb 12.8 (12.0-16.0) g/dL Hct 39.1 (36-46) % MCV 91.9 (80-100) fL MCH 30.2 (26-34) PG MCHC 32.8 (30-36) % RDW 13.2 (11.6-14.8) % Plt Count 232 (150-400) X10^3/uL Neut % (Auto) Not Reportable Lymph % (Auto) Not Reportable [place] % (Auto) Not Reportable Eos % (Auto) Not Reportable Baso % (Auto) Not Reportable Lymph # (Auto) Not Reportable [place] # (Auto) Not Reportable Baso # (Auto) Not Reportable Total Counted 100 Seg Neutrophils % 29.0 L (38-70) % Lymphocytes % (Manual) 52.0 H (25-45) % Atypical Lymphs % 11.0 H ( - 0) % Monocytes % (Manual) 8.0 (2-11) % Neutrophils # (Manual) 1334 L (4290-5481) /uL RBC Morphology Normal morphology Sodium 138 (137-145) mmol/L Potassium 3.9 (3.4-5.1) mmol/L Chloride 102 (98-107) mmol/L Carbon Dioxide 29 (22-32) mmol/L BUN 5 L (7-17) mg/dL Creatinine 0.46 L (0.52-1.04) mg/dL Estimated GFR > 60.0 (>60) mL/min BUN/Creatinine Ratio 10.9 (6-22) Glucose 92 (70-100) mg/dL Calcium 9.5 (8.4-10.2) mg/dL Total Bilirubin 0.3 (0.2-1.3) mg/dL AST 29 (14-36) IU/L ALT 12 (<35) IU/L Alkaline Phosphatase 58 (38-126) U/L Total Creatine Kinase 48 (30-135) U/L CK-MB (CK-2) TNP CK-MB (CK-2) Rel Index TNP Troponin I < 0.012 (0.01-0.034) ng/mL Total Protein 7.0 (6.3-8.2) g/dL Albumin 4.3 (3.5-5.0) g/dL Globulin 2.7 (1.7-4.1) g/dL Albumin/Globulin Ratio 1.6 (1.0-2.8) Lipase 170 (23-300) U/L ECG Data Attestation: I personally reviewed and interpreted this ECG as follows: Prior ECG tracings: available for review Interpretation: Sinus rate of 60 8p are 144 QRS 86 and QTC of 414. No acute changes appreciated. Prior from 04/16/[address] appears similar. [facility] Narrative Medical decision making narrative: Patient signed out to Dr. Riggs while work up is pending, EKG shows no acute changes. CXR and labs are pending. 50-year-old woman who presents with multiple nonspecific symptoms multiple descriptions of pressure in various areas including pressure in her upper arm pressure in her chest pressure in her neck pressure in her head. She describes point tenderness to the scalp on the top of her skin. 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 She comes in today increasingly anxious about her physical symptoms. She has been using a home oxygen saturation monitor and notes that when she has exercised gone down into the 70s -this is not associated with dyspnea. I explained to her the inaccurate sees that pulse ox technology has when there is movement. She also describes a rapid heart rate sometimes as high as 100 again associated with ?pressure?. There is no evidence of a stroke with today's workup no evidence of infection, sepsis, acute coronary syndrome and thyroid levels on the of this month were completely normal. At this point explained to her that the best we can do sometimes is explains things that you do not have and reassure you that there are no life-threatening etiologies to explain your symptoms. I recommended that she follow-up with her primary care physician if she continues to be concerned about palpitations and explained that a outpatient cardiac Mar may be helpful. Regarding her blood pressures I recommended taking is simply once a day keeping track of the numbers in reviewing the trans with her primary care doctor. She is safe for home discharge. <Joy Riggs MD - Last Filed: 04/20/21 09:06> Lab Data Labs: Lab Results 04/20/21 04/20/21 Range/Units 07:20 07:20 WBC 4.6 (4.5-11.0) X10^3/uL RBC 4.25 (4.0-5.2) X10^6/uL Hgb 12.8 (12.0-16.0) g/dL Hct 39.1 (36-46) % MCV 91.9 (80-100) fL MCH 30.2 (26-34) PG MCHC 32.8 (30-36) % RDW 13.2 (11.6-14.8) % Plt Count 232 (150-400) X10^3/uL Neut % (Auto) Not Reportable Lymph % (Auto) Not Reportable [place] % (Auto) Not Reportable Eos % (Auto) Not Reportable Baso % (Auto) Not Reportable Lymph # (Auto) Not Reportable [place] # (Auto) Not Reportable Baso # (Auto) Not Reportable Total Counted 100 Seg Neutrophils % 29.0 L (38-70) % Lymphocytes % (Manual) 52.0 H (25-45) % Atypical Lymphs % 11.0 H ( - 0) % Monocytes % (Manual) 8.0 (2-11) % Neutrophils # (Manual) 1334 L (2460-1388) /uL RBC Morphology Normal morphology Sodium 138 (137-145) mmol/L Potassium 3.9 (3.4-5.1) mmol/L Chloride 102 (98-107) mmol/L Carbon Dioxide 29 (22-32) mmol/L BUN 5 L (7-17) mg/dL Creatinine 0.46 L (0.52-1.04) mg/dL Estimated GFR > 60.0 (>60) mL/min BUN/Creatinine Ratio 10.9 (6-22) Glucose 92 (70-100) mg/dL Calcium 9.5 (8.4-10.2) mg/dL Total Bilirubin 0.3 (0.2-1.3) mg/dL AST 29 (14-36) IU/L ALT 12 (<35) IU/L Alkaline Phosphatase 58 (38-126) U/L Total Creatine Kinase 48 (30-135) U/L CK-MB (CK-2) TNP CK-MB (CK-2) Rel Index TNP Troponin I < 0.012 (0.01-0.034) ng/mL Total Protein 7.0 (6.3-8.2) g/dL Albumin 4.3 (3.5-5.0) g/dL Globulin 2.7 (1.7-4.1) g/dL Albumin/Globulin Ratio 1.6 (1.0-2.8) Lipase 170 (23-300) U/L MDM Narrative Medical decision making narrative: Patient signed out to Dr. Riggs while work up is pending. 50-year-old woman who presents with multiple nonspecific symptoms multiple descriptions of pressure in various areas including pressure in her upper arm pressure in her chest pressure in her neck pressure in her head. She describes point tenderness to the scalp on the top of her skin. 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 She comes in today increasingly anxious about her physical symptoms. She has been using a home oxygen saturation monitor and notes that when she has exercised gone down into the 70s -this is not associated with dyspnea. I explained to her the inaccurate sees that pulse ox technology has when there is movement. She also describes a rapid heart rate sometimes as high as 100 again associated with ?pressure?. There is no evidence of a stroke with today's workup no evidence of infection, sepsis, acute coronary syndrome and thyroid levels on the 11th of this month were completely normal. At this point explained to her that the best we can do sometimes is explains things that you do not have and reassure you that there are no life-threatening etiologies to explain your symptoms. I recommended that she follow-up with her primary care physician if she continues to be concerned about palpitations and explained that a outpatient cardiac Mar may be helpful. Regarding her blood pressures I recom mended taking is simply once a day keeping track of the numbers in reviewing the trans with her primary care doctor. She is safe for home discharge. Discharge Plan Departure Patient Disposition: Home Clinical Impression: Chest pressure, Pressure in head Activity Restrictions/Additional Instructions: Thank you for coming in today I know can be frustrating when no obvious explanation for your symptoms is forthcoming. Unfortunately sometimes the best we are able to do in the emergency department is reassure you that you do not have a life-threatening abnormality. I am able to do that today. You have not had any life-threatening heart arrhythmias, your blood pressure has been reassuring during your emergency evaluation, your labs are reassuring with normal red blood cell count(no anemia), normal kidney function, liver function, electrolytes and thyroid function. I would encourage you to follow-up with your primary care physician. I wish you the best in finding a more satisfying answer to your symptoms. Prescriptions: No Action No Known Home Medications RF: 0 Referrals: Shady Porter ARNP [Primary Care Provider] -
--- NOTE | 2021-04-20 06:38 | DI.RAD.S_ITS ---
PROCEDURE: XR CHEST 1V INDICATIONS: chest pressure TECHNIQUE: One view of the chest was acquired. COMPARISON: [facility], CR, XR CHEST 2V, 09/24/2020, 11:10. FINDINGS: Surgical changes and devices: None. Lungs and pleura: Lungs are clear. No pleural effusions or pneumothorax. Mediastinum: Mediastinal contours appear normal. Heart size is normal. Bones and chest wall: No suspicious bony lesions. Overlying soft tissues appear unremarkable. IMPRESSION: No acute cardiopulmonary abnormality. There is no significant discrepancy when compared to the overnight preliminary report. Dictated by: Prince Novak M.D. on 04/20/2021 at 7:50 Approved by: Prince Novak M.D. on 04/20/2021 at 7:50
[2021-04-20] MEDS: ASPIRIN 81 MG CHEW TAB 324 MG PO (07:08)
[2021-04-20 07:40] LABS: Hematocrit 39.1 % (36-46); Hemoglobin 12.8 g/dL (12.0-16.0); Mean Corpuscular HGB Conc 32.8 % (30-36); Mean Corpuscular Hemoglobin 30.2 PG (26-34); Mean Corpuscular Volume 91.9 fL (80-100); Platelet Count 232 X10^3/uL (150-400); Red Blood Cell Count 4.25 X10^6/uL (4.0-5.2); Red Cell Distribution Width 13.2 % (11.6-14.8); White Blood Cell Count 4.6 X10^3/uL (4.5-11.0)
[2021-04-20 07:41] LABS: Add Manual Diff / Slide Review YES
[2021-04-20 07:58] LABS: Alanine Aminotransferase 12 IU/L (<35); Albumin 4.3 g/dL (3.5-5.0); Albumin Globulin Ratio 1.6 (1.0-2.8); Alkaline Phosphatase 58 U/L (38-126); Aspartate Aminotransferase 29 IU/L (14-36); BUN Creatinine Ratio 10.9 (6-22); Bilirubin Total 0.3 mg/dL (0.2-1.3); Blood Urea Nitrogen 5 mg/dL (7-17); Calcium 9.5 mg/dL (8.4-10.2); Carbon Dioxide 29 mmol/L (22-32); Chloride 102 mmol/L (98-107); Creatine Kinase 48 U/L (30-135); Estimated Glomerular Filt Rate > 60.0 mL/min (>60); Globulin 2.7 g/dL (1.7-4.1); Glucose 92 mg/dL (70-100); HEMOLYSIS < 15 (0-50); Lipase 170 U/L (23-300); Potassium 3.9 mmol/L (3.4-5.1); Sodium 138 mmol/L (137-145)
[2021-04-20 08:07] LABS: Neutrophils Absolute Manual 1334 /uL (3000-5900); RBC Morphology Normal Morphology; Total Cells Counted 100
[2021-04-20 08:09] LABS: Troponin I < 0.012 ng/mL (0.01-0.034)
== END 2021-04-20 09:41 | disposition home or self-care (01) ==
PROVIDERS: Emergency Medicine; Emergency Provider Emergency Medicine; PCP Registered Nurse Diabetes Educator
DX: R07.89 Other chest pain (principal); R51.9 Headache, unspecified; M79.602 Pain in left arm
CPT/HCPCS: 36415; 71045; 80053; 82550; 83690; 84484; 85007; 85025; 93005; 93010; 99283; 99284

== ENCOUNTER → 2021-05-02 11:57 | Outpatient (CLI) | payer OTHER, SELFPAY ==
[2020-09-08 09:32] VITALS: BMI 22.0
[2021-05-02 14:06] LABS: COVID19 -Nasal RAPID Negative (Negative)
== END ==
PROVIDERS: PCP Registered Nurse Diabetes Educator; Visit Provider Nurse Practitioner Family
DX: Z20.822 Contact with and (suspected) exposure to COVID-19 (principal)
CPT/HCPCS: 87635

== ENCOUNTER → 2021-05-04 15:25 | Outpatient (CLI) | payer OTHER, SELFPAY ==
[2020-09-08 09:32] VITALS: BMI 22.0
--- NOTE | 2021-05-04 18:12 | DI.NM.S_ITS ---
DATE OF SERVICE: 05/04/2021 PROCEDURE PERFORMED: Exercise treadmill stress test without imaging. ORDERING PROVIDER: June Ellis ND. INDICATIONS: The patient is a 50-year-old female with palpitations, atypical chest discomfort and dyspnea. FINDINGS: 1. The patient was able to exercise for 6 minutes, 59 seconds on a standard Baljit protocol suggesting mildly impaired exercise capacity with an PO of +10%, achieving 10.1 METs. 2. She had an accelerated heart rate response to exercise with a resting heart rate of 115 BPM, increasing to 133 BPM after 1 minute of exercise, 160 BPM after 3 minutes of exercise and a maximum heart rate of 182 BPM (107% of her predicted maximum). She had a normal blood pressure response. 3. She had no chest discomfort or other anginal symptoms. 4. Her resting ECG shows sinus rhythm with borderline low voltage QRS and mild nonspecific ST and T-wave abnormality. There are no significant ST-segment shifts or ectopy with exercise. IMPRESSION: 1. Normal exercise treadmill study for ischemia. 2. Mildly impaired exercise capacity with an accelerated heart rate response to exercise. There were no arrhythmias. Cary Copeland - /jake/tomas doc#: [id number]/job#: [id number] dd: 05/04/2021 17:09:00 dt: 05/04/2021 17:48:00 DICTATING MD/COPIES TO: Jorge A Aguilar MD; June Ellis ND COPIES MNE: ARIEL; ; June Ellis ND
== END ==
PROVIDERS: PCP Naturopath; Referring Provider Naturopath; Visit Provider Naturopath
DX: R00.0 Tachycardia, unspecified (principal); R00.2 Palpitations; R07.89 Other chest pain; R06.00 Dyspnea, unspecified
CPT/HCPCS: 93017

== ENCOUNTER → 2021-09-17 14:55 | Outpatient (CLI) | payer OTHER, SELFPAY ==
[2020-09-08 09:32] VITALS: BMI 22.0
--- NOTE | 2021-09-17 | DI.RAD.S_ITS ---
PROCEDURE: XR CHEST 2V INDICATIONS: Encounter for screening for infectious and parasitic disease TECHNIQUE: 2 views of the chest were acquired. COMPARISON: [facility], CR, XR CHEST 2V, 09/24/2020, 11:10. [facility], CR, XR CHEST 1V, 04/20/2021, 6:40. FINDINGS: Surgical changes and devices: None. Lungs and pleura: Lungs are clear. No pleural effusions or pneumothorax. Mediastinum: Mediastinal contours are normal. Heart size is normal. Bones and chest wall: No suspicious bony abnormalities. Soft tissues appear unremarkable. IMPRESSION: No acute cardiopulmonary disease. Dictated by: Alejandro Bernstein RR Interpreted: Aries Jj MD on 09/17/2021 at 16:00 Transcribed by: MARISSA on 09/17/2021 at 16:00 Approved by: Aries jJ M.D. on 09/17/2021 at 16:50
[2021-09-17 16:31] LABS: Appearance Urine UA CLEAR; Bilirubin Urine UA NEGATIVE (NEGATIVE); Color Urine UA YELLOW; Glucose Urine UA NEGATIVE (Negative); Ketones Urine UA NEGATIVE (NEGATIVE); Leukocyte Esterase Urine UA NEGATIVE (NEGATIVE); Nitrite Urine UA NEGATIVE (Negative); Occult Blood Urine UA NEGATIVE (Negative); Protein Urine UA NEGATIVE (Negative); Urobilinogen Urine UA 0.2 E.U./dL (0.2); pH Urine UA 7.5 (4.5-8.0)
[2021-09-17 16:44] LABS: Bacteria Urine Few (2-10); Culture Indicated Urine Cult Not Indicated; RBC Urine 0-1/HPF (0-5/HPF); Squamous Epithelial Cell Urine 1-5 /HPF (0-5/HPF); WBC Urine 0-1/HPF (0-5/HPF)
[2021-09-17 20:38] LABS: Ferritin 10 ng/mL (11-264)
[2021-09-18 04:48] LABS: RPR Screen Non Reactive (Non Reactive)
== END ==
PROVIDERS: PCP Naturopath; Referring Provider Naturopath; Visit Provider Naturopath
DX: Z11.3 Encounter for screening for infections with a predominantly sexual mode of transmission (principal); Z11.9 Encounter for screening for infectious and parasitic diseases, unspecified; D50.9 Iron deficiency anemia, unspecified
CPT/HCPCS: 36415; 71046; 81001; 82728; 86592; 87177